=== PATIENT | female | born 1965 | race Caucasian/White ===

== ENCOUNTER → 2020-10-27 16:19 | Outpatient (CLI) | payer OTHER, SELFPAY ==
[2020-10-27 15:37] VITALS: BMI 27.3
[2020-11-02 09:55] LABS: HPV APTIMA, High Risk Negative (Negative)
== END ==
PROVIDERS: PCP Family Medicine; Referring Provider Nurse Practitioner Women's Health; Visit Provider Nurse Practitioner Women's Health
DX: Z12.4 Encounter for screening for malignant neoplasm of cervix (principal)
CPT/HCPCS: 87624; 88175; G0145

== ENCOUNTER → 2020-11-10 07:03 | Outpatient (CLI) | payer OTHER, SELFPAY ==
[2020-10-27 15:37] VITALS: BMI 27.3
--- NOTE | 2020-11-10 07:05 | BI_ITS ---
MAMMOGRAPHY - BILATERAL SCREENING REASON FOR EXAM: Female, 55 years old. Routine annual screening examination. PERTINENT HISTORY: Non-contributory. TECHNIQUE: Digital bilateral breast racheal (3D mammographic acquisition) in the CC and MLO projections. 2-D mediolateral oblique (MLO) and craniocaudad (CC) views of both breasts were obtained. CAD: Full Field Digital Mammography with Computer Added Detection was performed. COMPARISON: Comparison is made with prior outside examination dated 10/08/2014. FINDINGS: Breast Composition: The breasts are heterogeneously dense, which may obscure small masses. There are no dominant masses or suspicious calcifications. No other significant abnormalities are identified. There has been no significant change since the prior study. BI/SCRN MAMM (CAD)W/RACHEAL BILAT IMPRESSION: Stable bilateral screening mammogram. Yearly follow-up mammogram recommended. (A) ASSESSMENT CATEGORY: BIRADS Category 1: Negative. A letter regarding these results will be sent to the patient by the facility within 30 days. Approximately 10% of breast cancers are not detected by mammography. A normal mammogram should not delay biopsy of a clinically suspicious abnormality. [id number] Electronically Signed: Sunny Hood MD at 8:16 EDT , Service support ,
[2020-11-10 08:43] LABS: Cholesterol 202 mg/dL (200); Glucose 88 mg/dL (74-106); High Density Lipoprotein 74 mg/dL; Thyroid Stim Hormone (TSH) 4.19 uIU/mL (0.358-3.74); Triglycerides 54 mg/dL; Very Low Density Lipoprotein 11 mg/dL (5-40)
[2020-11-10 09:00] LABS: Vitamin D,25 Hydroxy 35.1 ng/mL
== END ==
PROVIDERS: PCP Family Medicine; Referring Provider Nurse Practitioner Women's Health; Visit Provider Nurse Practitioner Women's Health
DX: Z12.31 Encounter for screening mammogram for malignant neoplasm of breast (principal); Z13.1 Encounter for screening for diabetes mellitus; Z13.220 Encounter for screening for lipoid disorders; Z13.21 Encounter for screening for nutritional disorder
CPT/HCPCS: 36415; 77063; 77067; 80061; 82306; 82947; 84443

== ENCOUNTER → 2021-03-02 10:27 | Outpatient (CLI) | payer OTHER, SELFPAY ==
[2021-03-02 12:55] LABS: Free T3 2.4 pg/mL (2.18-3.98); T4 Total, Thyroxin 9.8 ug/dL (4.8-13.9)
== END ==
PROVIDERS: PCP Family Medicine; Referring Provider Family Medicine; Visit Provider Nurse Practitioner Family
DX: E03.9 Hypothyroidism, unspecified (principal)
CPT/HCPCS: 36415; 84436; 84481

== ENCOUNTER 2021-04-20 13:46 | Outpatient (CLI) | payer OTHER, SELFPAY ==
[2021-04-21 09:13] LABS: Thyroid Stim Hormone (TSH) 2.85 uIU/mL (0.358-3.74)
== END 2021-04-20 23:59 | disposition short-term general hospital (02) ==
PROVIDERS: PCP Family Medicine; Referring Provider Family Medicine; Visit Provider Nurse Practitioner Family
DX: E03.9 Hypothyroidism, unspecified (principal)
CPT/HCPCS: 36415; 84443

== ENCOUNTER → 2021-10-14 | Outpatient (CLI) | payer OTHER, SELFPAY ==
[2021-10-14 18:13] LABS: Anion Gap 6 (5-15); BUN 16 mg/dL (7-18); BUN/Creat Ratio 25.9 RATIO (10-20); Calcium,Total 9.3 mg/dL (8.5-10.1); Chloride 102 mmol/L (98-107); Creatinine, Serum 0.62 mg/dL (0.55-1.02); EST Glomerular Filtration Rate 107 mL/min (>60); Est Glom Filt Rate - Afr Amer 130 mL/min (>60); Glucose 99 mg/dL (74-106); Potassium 3.8 mmol/L (3.5-5.1); Sodium Level 138 mmol/L (136-145); Thyroid Stim Hormone (TSH) 2.92 uIU/mL (0.358-3.74)
== END | disposition home or self-care (01) ==
LOC: MFPLAB 14:36
PROVIDERS: Nurse Practitioner Family; PCP Family Medicine; Referring Provider Family Medicine; Visit Provider Family Medicine
DX: E03.9 Hypothyroidism, unspecified (principal)
CPT/HCPCS: 36415; 80048; 84443

== ENCOUNTER → 2021-12-30 | Outpatient (CLI) | payer OTHER, SELFPAY ==
[2021-12-30 18:33] LABS: T4 Free Direct 0.99 ng/dL (0.76-1.46); Thyroid Stim Hormone (TSH) 2.38 uIU/mL (0.358-3.74)
== END | disposition home or self-care (01) ==
LOC: MFPLAB 14:38
PROVIDERS: PCP Family Medicine; Referring Provider Family Medicine; Visit Provider Nurse Practitioner Family
DX: E03.9 Hypothyroidism, unspecified (principal)
CPT/HCPCS: 36415; 84439; 84443

== ENCOUNTER → 2022-04-05 | Outpatient (CLI) | payer OTHER, SELFPAY ==
[2022-04-05 11:16] LABS: Free T3 2.3 pg/mL (2.18-3.98); T4 Free Direct 0.97 ng/dL (0.76-1.46); Thyroid Stim Hormone (TSH) 2.66 uIU/mL (0.358-3.74)
== END | disposition home or self-care (01) ==
LOC: MFPLAB 08:09
PROVIDERS: PCP Family Medicine; Visit Provider Family Medicine
DX: E03.9 Hypothyroidism, unspecified (principal)
CPT/HCPCS: 36415; 84439; 84443; 84481

== ENCOUNTER → 2022-05-26 | Outpatient (CLI) | payer OTHER, SELFPAY ==
[2022-05-26 10:54] LABS: PTHIN 57.7 pg/mL (18.4-80.1)
[2022-05-26 11:13] LABS: ALB/GLOB Ratio 1.1 RATIO (0.9-2.4); AST(SGOT) 20 U/L (15-37); Alanine Aminotransfer ALT/SGPT 24 U/L (13-56); Albumin, Serum 3.9 g/dL (3.2-5.0); Alkaline Phosphatase 93 U/L (45-117); Anion Gap 10 (5-15); BUN 11 mg/dL (7-18); BUN/Creat Ratio 17.5 RATIO (10-20); Calcium,Total 9.1 mg/dL (8.5-10.1); Chloride 100 mmol/L (98-107); Creatinine, Serum 0.63 mg/dL (0.55-1.02); EST Glomerular Filtration Rate 104 mL/min (>60); Est Glom Filt Rate - Afr Amer 126 mL/min (>60); Free T3 2.9 pg/mL (2.18-3.98); Globulin 3.6 g/dL (2.2-4.2); Glucose 91 mg/dL (74-106); Potassium 3.8 mmol/L (3.5-5.1); Protein, Total 7.5 g/dL (6.4-8.2); Sodium Level 138 mmol/L (136-145); T4 Free Direct 1.33 ng/dL (0.76-1.46); Thyroid Stim Hormone (TSH) 0.56 uIU/mL (0.358-3.74)
[2022-05-29 12:08] LABS: Vitamin D 1,25-Dihydroxy 38.2 pg/mL (24.8-81.5)
[2022-05-29 18:50] LABS: ANTINUCLEAR ANTIBODIES DIRECT Negative (Negative)
== END | disposition home or self-care (01) ==
LOC: MFPLAB 09:04
PROVIDERS: PCP Family Medicine; Visit Provider Family Medicine
DX: M25.50 Pain in unspecified joint (principal)
CPT/HCPCS: 36415; 80053; 82652; 83970; 84439; 84443; 84481; 86038

== ENCOUNTER → 2022-11-24 | Outpatient (CLI) | payer OTHER, SELFPAY ==
[2022-11-24 15:23] LABS: T4 Free Direct 1.08 ng/dL (0.76-1.46)
== END | disposition home or self-care (01) ==
LOC: MTLAB 11:58
PROVIDERS: PCP Family Medicine; Referring Provider Nurse Practitioner Family; Visit Provider Nurse Practitioner Family
DX: E03.9 Hypothyroidism, unspecified (principal)
CPT/HCPCS: 36415; 84439

== ENCOUNTER → 2022-12-01 | Outpatient (CLI) | payer OTHER, SELFPAY ==
[2022-12-01 12:54] LABS: Alanine Aminotransfer ALT/SGPT 20 U/L (13-56); Cholesterol 220 mg/dL (200); Creatinine, Serum 0.62 mg/dL (0.55-1.02); EST Glomerular Filtration Rate 105 mL/min (>60); Est Glom Filt Rate - Afr Amer 128 mL/min (>60); High Density Lipoprotein 86 mg/dL; Thyroid Stim Hormone (TSH) 2.03 uIU/mL (0.358-3.74); Triglycerides 63 mg/dL; Very Low Density Lipoprotein 13 mg/dL (5-40)
== END | disposition home or self-care (01) ==
LOC: MFPLAB 09:42
PROVIDERS: PCP Family Medicine; Visit Provider Family Medicine
DX: E03.9 Hypothyroidism, unspecified (principal); Z13.220 Encounter for screening for lipoid disorders
CPT/HCPCS: 36415; 80061; 82565; 84443; 84460

== ENCOUNTER → 2023-06-26 | Outpatient (CLI) | payer OTHER, SELFPAY ==
--- NOTE | 2023-06-26 07:18 | BI_ITS ---
MAMMOGRAPHY - BILATERAL SCREENING REASON FOR EXAM: Female, 58 years old. Routine annual screening examination. PERTINENT HISTORY: Non-contributory. TECHNIQUE: Digital bilateral breast racheal (3D mammographic acquisition) in the CC and MLO projections. 2-D mediolateral oblique (MLO) and craniocaudad (CC) views of both breasts were obtained. CAD: Full Field Digital Mammography with Computer Added Detection was performed. COMPARISON: Comparison is made with prior study November 10, 2020. FINDINGS: Breast Composition: The breasts are heterogeneously dense, which may obscure small masses. There are no dominant masses or suspicious calcifications. No other significant abnormalities are identified. There has been no significant change since the prior study. BI/SCRN MAMM (CAD)W/RACHEAL BILAT IMPRESSION: Stable bilateral screening mammogram. Yearly follow-up mammogram recommended. (A) ASSESSMENT CATEGORY: BIRADS Category 1: Negative. A letter regarding these results will be sent to the patient by the facility within 30 days. Approximately 10% of breast cancers are not detected by mammography. A normal mammogram should not delay biopsy of a clinically suspicious abnormality. [id number] Electronically Signed: Sunny Hood MD at 9:58 EDT ,
== END | disposition home or self-care (01) ==
LOC: OPBI 07:18
PROVIDERS: PCP Family Medicine; Referring Provider Family Medicine; Visit Provider Family Medicine
DX: Z12.31 Encounter for screening mammogram for malignant neoplasm of breast (principal)
CPT/HCPCS: 77063; 77067

== ENCOUNTER → 2023-12-05 | Outpatient (CLI) | payer OTHER, SELFPAY ==
[2023-12-05 10:07] LABS: Absolute Lymphocyte Count 2.37 X10^3/uL (0.83-4.51); Absolute Neutrophil Count 2.6 X10^3/uL (2.0-7.7); Basophil# 0.07 X10^3/uL; Basophil% 1.2 % (0-1); Eosinophil# 0.34 X10^3/uL; Eosinophils% 5.8 % (0-5); Hematocrit 44.4 % (37-47); Hemoglobin 14.7 g/dL (12.0-15.0); Lymphocyte # 2.37 X10^3/ul (0.83-4.51); Lymphocyte % 40.2 % (19-41); Mean Corp Hgb Conc 33.1 g/dL (32-36); Mean Corpuscular Hgb 31.5 pg (27.0-32.0); Mean Corpuscular Volume 95.3 fL (81-99); Mean Platelet Vol. 9.8 fl (6.2-12.0); Monocyte# 0.55 X10^3/uL; Monocyte% 9.3 % (0-10); NRBC Flagged by Analyzer 0 % (0-5); Neutrophil # 2.55 X10^3/uL (2.7-7.7); Neutrophil % 43.2 % (47-70); Platelet Count 313 K/mm3 (150-450); RBC Distribution Width CV 12.4 % (11.6-14.6); RBC Distribution Width SD 43.9 fl (35.1-43.9); Red Blood Count 4.66 M/mm3 (4.2-5.4); White Blood Count 5.9 K/mm3 (4.4-11.0)
[2023-12-05 10:40] LABS: Vitamin D,25 Hydroxy 29.3 ng/mL
[2023-12-05 10:58] LABS: AST(SGOT) 14 U/L (15-37); Alanine Aminotransfer ALT/SGPT 20 U/L (13-56); Albumin, Serum 3.8 g/dL (3.2-5.0); Alkaline Phosphatase 87 U/L (45-117); Anion Gap 4 (5-15); BUN 18 mg/dL (7-18); BUN/Creat Ratio 23.8 RATIO (10-20); Calcium,Total 9.3 mg/dL (8.5-10.1); Chloride 104 mmol/L (98-107); Cholesterol 234 mg/dL (200); Creatinine, Serum 0.76 mg/dL (0.55-1.02); EST Glomerular Filtration Rate 84 mL/min (>60); Est Glom Filt Rate - Afr Amer 102 mL/min (>60); Globulin 3.7 g/dL (2.2-4.2); Glucose 89 mg/dL (74-106); High Density Lipoprotein 106 mg/dL; Potassium 3.9 mmol/L (3.5-5.1); Protein, Total 7.5 g/dL (6.4-8.2); Sodium Level 137 mmol/L (136-145); Triglycerides 68 mg/dL; Very Low Density Lipoprotein 14 mg/dL (5-40)
== END | disposition home or self-care (01) ==
LOC: MTLAB 07:39
PROVIDERS: PCP Family Medicine; Referring Provider Family Medicine; Visit Provider Family Medicine
DX: Z00.00 Encounter for general adult medical examination without abnormal findings (principal); J45.909 Unspecified asthma, uncomplicated; E03.9 Hypothyroidism, unspecified; Z13.220 Encounter for screening for lipoid disorders
CPT/HCPCS: 36415; 80053; 80061; 82306; 84443; 85025

== ENCOUNTER 2024-11-01 10:06 | Emergency (ER) | payer OTHER, SELFPAY ==
[2024-11-01 10:08] VITALS: BP 195/101; PULSE 89; RESP 16; TEMP 36.7; O2SAT 100
[2024-11-01 10:10] VITALS: BMI 28.4
--- NOTE | 2024-11-01 10:25 | CT_ITS ---
PROCEDURE: ABDOMEN/PELVIS W IV CONT ONLY 11/01/2024 REASON FOR EXAM: RLQ PAIN TECHNIQUE: ABDOMEN/PELVIS W IV CONT ONLY Coronal and Sagittal reconstruction series were provided. CONTRAST: Isovue 370 VOLUME: 100 mL One or more dose reduction techniques were used (e.g., Automated exposure control, adjustment of the mA and/or kV according to patient size, use of iterative reconstruction technique. RADIATION DOSE SUMMARY: CTDlvol: 15.65 mGy DLP: 731.16 mGycm COMPARISON: Unremarkable. FINDINGS: Lung bases: Clear. Liver: Unremarkable. Gallbladder: Unremarkable. No biliary dilation. Spleen: Unremarkable. Pancreas: Unremarkable. Adrenals: Bilateral adrenal nodules measuring 7 mm on the left and 17 mm on the right. Kidneys: No hydronephrosis or nephrolithiasis. Bladder: Distended and unremarkable. Reproductive Organs: Prominence of the left pelvic vasculature may be seen with pelvic congestion syndrome. Status post tubal ligation. Bowel: No bowel wall thickening. No bowel obstruction. Appendix: No evidence of acute appendicitis. Lymph nodes: No lymphadenopathy. Vasculature: No aneurysm. No dissection. Peritoneum / Retroperitoneum: No free air or free fluid. Bones: No acute bony abnormalities. CT/Abdomen/Pelvis W IV Cont ONLY IMPRESSION: Prominence of the left pelvic vasculature which may be seen with pelvic congest ion syndrome. Status post tubal ligation. Otherwise, no acute abdominopelvic findings. Bilateral adrenal nodules measuring 7 mm on the left and 17 mm on the right. C T scan with adrenal protocol may be performed for further evaluation. Reading Location: [id number]
--- NOTE | 2024-11-01 10:41 | EX.ED.DYSGE1 ---
HPI History of Present Illness Chief Complaint: Lower Extremity Injury Narrative Narrative: Patient is a 59-year-old female presenting to the emergency department for right groin pain. Patient has no significant past medical history. She states that 3 weeks ago she started to have aching pain in her right groin. She states that she has a prickling sensation down the right lateral thigh that stops at the knee. She denies any trauma. Denies any IV drug use, saddle anesthesia, bowel or bladder incontinence or retention. Denies any back pain. She reports she has been trying multiple medications at home including Tylenol, Motrin, Voltaren gel, gabapentin and a short course of prednisone but nothing has helped her pain. States that she went to work last night and thinks she further worsened her injury. Today she went to have an MRI done and could not tolerate the pain so she came here afterwards. Denies fever, chills, chest pain, SOB, nausea, vomiting, diarrhea, dysuria, hematuria, pelvic pain. Denies numbness or weakness in her leg. [facility] Medical History Hot flash not due to menopause Asthma Home Medications ?Medication ?Instructions ?Recorded ?Last Taken ?Type active liver PO 10/27/20 Unknown History albuterol 90 mcg/actuation aerosol mcg inhalation 10/27/20 Unknown History inhaler loratadine-pseudoephedrine ER 10 1 tab PO DAILY 10/27/20 Unknown History mg-240 mg tablet,extended [id number] (Claritin-D 24 Hour) levothyroxine 75 mcg capsule 75 mcg PO DAILY 06/27/23 Unknown History cyclobenzaprine 10 mg tablet 10 mg PO TID PRN Muscle Spasm #20 11/01/24 Unknown Rx TABLETS oxycodone-acetaminophen 5 mg-325 1 tab PO Q8H PRN pain 3 days #12 11/01/24 Unknown Rx mg tablet (Percocet) tabs Allergy/AdvReac Type Severity Reaction Status Date / Time Penicillins Allergy Intermediate Anaphylaxis Verified 11/01/24 10:10 Family History Grandfather Heart disease Cancer Father Heart disease Mother Hypertension Thyroid disorder Surgical History History of tubal ligation History of tonsillectomy and adenoidectomy Social History household members: spouse number of children: 2 current occupational status: employed current occupation: [employer] history of recent travel: No sexually active: Yes Smoking Status: Never smoker alcohol intake: current alcohol intake frequency: a few times a month substance use type: does not use what type of physical activity do you participate in: walking, bicycling and yoga frequency: 3-4 times per week seatbelt use: always do you feel safe at home: Yes additional social history: - [place] ROS ED ROS Narrative see HPI EXAM Physical Exam Narrative Exam Narrative: Vital signs: Reviewed General: Alert and oriented. No acute distress HEENT: Head is normocephalic and atraumatic, sinuses nontender, pupils equal round and reactive. Nares are patent. Oropharynx and throat exams normal. Neck: Supple without lymphadenopathy nontender Cardiovascular: Regular rate and rhythm, no murmurs. No rubs or gallops. Normal S1 and S2 Respiratory: Clear to auscultation bilaterally. No wheezes, rales, rhonchi Abdominal: Soft and tender to palpation in the right lower quadrant. No RUQ, epigastric, left sided or suprapubic abdominal pain. Normal bowel sounds. No guarding or rebound. Nonsurgical abdomen Extremities: No tenderness. No bruising. Normal range of motion. 5/5 strength with flexion and extension at hip and knee. Normal sensation. No swelling of leg or calf. No tenderness palpation of the posterior calf. DP and PT pulses intact bilaterally. No midline cervical, thoracic or lumbar spinal tenderness to palpation. No step-offs or deformities. No paraspinal tenderness to palpation. Skin: No rash or redness. Neurological: Cranial nerves II through XII are grossly intact. Normal strength and sensation. Normal cerebellar function The rest of the physical exam is unremarkable Const Vital Signs: 11/01/24 10:08 11/01/24 12:07 11/01/24 14:00 Temperature 98.1 F Temperature Source Oral Pulse Rate 89 91 76 Respiratory Rate 16 18 18 Blood Pressure 195/101 H 165/99 H 168/89 H Blood Pressure Mean 132 121 115 Pulse Ox 100 99 99 Oxygen Delivery Method Room Air 11/01/24 14:41 Temperature 98.1 F Temperature Source Pulse Rate 76 Respiratory Rate 18 Blood Pressure 168/89 H Blood Pressure Mean 115 Pulse Ox 99 Oxygen Delivery Method MDM MDM MDM Narrative Medical decision making narrative: Patient is a 59-year-old female presenting emergency department for right groin pain. Patient was seen and examined. Vitals are stable. Patient resting in bed comfortably in no acute distress. Patient given Toradol for pain control. Patient had a MRI of her lumbar spine done this morning. This is pending at this time. Patient given Toradol for pain control. I suspect this is likely MSK however she did have right lower quadrant pain to palpation, CT of the abdomen pelvis was ordered. She has no swelling or tenderness to palpation of the calf, I do not suspect DVT. No urinary symptoms to suspect UTI. CBC with a leukocytosis of 11.2 and hemoglobin of 15.3. Urinalysis with no evidence of UTI. BMP with no significant abnormalities. CT shows prominence of the left pelvic vasculature which may be seen with pelvic congestion syndrome. Status post tubal ligation. Otherwise, no acute abdominopelvic findings. Bilateral adrenal nodules measuring 7 mm on the left and 17 mm on the right. CT scan with adrenal protocol may be performed for further evaluation. MRI was reviewed from outpatient. There are no acute findings. Patient updated on the findings. She still endorsing pain, morphine was given. Has been will be coming to [employer]. Given negative workup, this is likely MSK in nature. It does worsen with movement and ambulation. Patient was prescribed Flexeril and Percocet for home given she has tried multi little pain control at home with no improvement in pain. She was encouraged to follow-up with orthopedics soon as possible and return to the ED with any worsening symptoms. Patient discharged from the Emergency Department. I do not feel that the patient's evaluation reveals any acute reason for admission at this time. I instructed them to either follow-up with their primary care physician or promptly return to the Emergency Department for reevaluation should symptoms worsen or new symptoms develop. I explained what symptoms would indicate the need to return to the emergency department. Shared decision making was used. The patient voiced understanding of the treatment plan and is agreeable with it. History & Record Review Discussion w/independent historian: Patient Lab Data Attestation: I reviewed the patient's lab results. Labs: Laboratory Results - last 24 hr 11/01/24 11/01/24 10:38 12:00 WBC 11.2 H RBC 4.66 Hgb 15.3 H Hct 44.3 MCV 95.1 MCH 32.8 H MCHC 34.5 RDW Std Deviation 44.0 H RDW Coeff of Justine 12.6 Plt Count 311 MPV 8.9 Immature Gran % (Auto) 0.500 Neut % (Auto) 71.3 H Lymph % (Auto) 17.1 L Carver % (Auto) 8.2 Eos % (Auto) 2.4 Baso % (Auto) 0.5 Absolute Neuts (auto) 8.0 H Absolute Lymphs (auto) 1.91 Nucleated RBC % 0 Sodium 137 Potassium 4.1 Chloride 99 Carbon Dioxide 27.7 Anion Gap 10 BUN 13 Creatinine 0.65 L Estim Creat Clear Calc 87.79 Est GFR (MDRD) Non-Af 103 BUN/Creatinine Ratio 20.0 Glucose 103 H Calcium 9.5 Total Bilirubin 0.33 AST 16 ALT 16 Alkaline Phosphatase 85 Total Protein 6.9 Albumin 4.2 Globulin 2.8 Albumin/Globulin Ratio 1.5 Urine Color Yellow Urine Clarity Clear Urine pH 8.0 Ur Specific [place] 1.010 Urine Protein Negative Urine Glucose (UA) Normal Urine Ketones Negative Urine Occult Blood Negative Urine Nitrite Negative Urine Bilirubin Negative Urine Urobilinogen Normal Ur Leukocyte Esterase Negative Urine RBC 0 SEEN Urine WBC 0-5 SEEN Ur Squamous Epith Cells 0 SEEN Urine Bacteria 0 SEEN Urine Mucus 0 SEEN Radiography Diagnostic Testing: Clinical Impression(s) from Imaging Studies Abdomen/Pelvis CT 11/01/24 10:25 IMPRESSION: Prominence of the left pelvic vasculature which may be seen with pelvic congestion syndrome. Status post tubal ligation. Otherwise, no acute abdominopelvic findings. Bilateral adrenal nodules measuring 7 mm on the left and 17 mm on the right. CT scan with adrenal protocol may be performed for further evaluation. Reading Location: [facility] Discharge Plan Triage Chief Complaint: Lower Extremity Injury ED Provider: Carrol Jarvis Dx/Rx/DC Orders Instructions: ED Hip Strain Prescriptions: New oxycodone-acetaminophen [Percocet] 5-325 mg tablet 1 tab PO Q8H PRN (Reason: pain) 3 Days Qty: 12 0RF cyclobenzaprine 10 mg tablet 10 mg PO TID PRN (Reason: Muscle Spasm) Qty: 20 0RF No Action loratadine-pseudoephedrine [Claritin-D 24 Hour] 10-240 mg tablet extended release 24 hr 1 tab PO DAILY active liver PO albuterol 90 mcg/actuation aerosol inhalation levothyroxine 75 mcg capsule 75 mcg PO DAILY Primary Care Provider: Judy Santana Referrals: Judy Santana MD [Primary Care Provider] - 2 Days Activity Restrictions/Additional Instructions: Your evaluation in the Emergency Department did not reveal any acute reason for admission. However, I want to emphasize that you may be early in the course of a disease process or illness even if it is not present. For this reason you should follow-up within 24 hours for reevaluation with either your primary care physician or if necessary back here in the Emergency Department. You should return to the Emergency Department immediately if your symptoms worsen or new symptoms develop. You can take the Percocet 1 tablet every 8 hours for pain control. Tried to take Motrin first. You can take the Flexeril for muscle spasms. Taking this in the Percocet may cause lightheadedness, nausea, vomiting. Do not take this while driving or operating heavy machinery. Return to the ED with any new or worsening symptoms. Follow-up with your primary care doctor soon as possible. Print Language: Greenlandic Disposition Disposition: Home, Self Care Discharge Date/Time: 11/01/24 14:47
[2024-11-01 10:47] LABS: Hematocrit 44.3 % (37-47); Hemoglobin 15.3 g/dL (12.0-15.0); Immature Granulocytes Count 0.060 X10^3/uL (0.0-0.0); Mean Corp Hgb Conc 34.5 g/dL (32-36); Mean Corpuscular Volume 95.1 fL (81-99); Mean Platelet Vol. 8.9 fl (6.2-12.0); NRBC Flagged by Analyzer 0 % (0-5); Platelet Count 311 K/mm3 (150-450); RBC Distribution Width CV 12.6 % (11.6-14.6); RBC Distribution Width SD 44.0 fl (35.1-43.9); Red Blood Count 4.66 M/mm3 (4.2-5.4); White Blood Count 11.2 K/mm3 (4.4-11.0)
--- OUTSIDE RECORDS SUMMARY | 2024-11-01 10:49 | XMS RPT_ITS | CCD ---
Author Organization [facility] Care Team Providers Care Director Of Event Management Name Role Phone Dr. Khurram Parish Primary Care Provider [phone] Dr. Khurram Parish Referring Provider [phone] NIRAV Cardona Attending Provider Unallocated MD, Noms Provider Primary Care Provi margaux Unallocated , Noms Provider Primary Care Provi margaux CARA WELLINGTON Attending Unavailable CARA WELLINGTON Attending Unavailable Judy Santana Primary Care Unavailable Judy Santana Attending Unavailable Judy Santana Referring Unavailable McMorrow MAINTENANCE AND UTILITIES SUPERVISOR, Wai Attending Unavailable McMorrow MAINTENANCE AND UTILITIES SUPERVISOR, Wai Referring Unavailable Judy Santana Primary Care Unavailable Allergies Allergy Classification Reported Allergen(s) Allergy Type Date of Onset Reaction(s) Facility (9 sources) Penicillins; Translations: [Penicillins] Allergy to substance 1965 Anaphylaxis [facility] Medications Current Medications Medication Drug Class(es) [...] every week ergocalciferol (Vitamin D2) 1.25 MG (48126 UT) capsule Take 1 capsule by mouth [...] Absolute Lymph 2.37 X10 3/uL Normal 0.83-4.51 [facility] Comment on above: Performed By: #### L 500.4100, L500.4050, L100.0100, L501.9520, L506.1000 #### [facility] [address] [place], [address] Absolute Neut 2.6 X10 3/uL Normal 2.0-7.7 [facility] Comment on above: Performed By: #### L 500.4100, L500.4050, L100.0100, L501.9520, L506.1000 #### [facility] [address] [place], [address] Basophils/100 WBC (Bld) 1.2 % High 0-1 [facility] Comment on above: Performed By: #### L 500.4100, L500.4050, L100.0100, L501.9520, L506.1000 #### [facility] [address] [place], [address] Eosinophils/100 WBC (Bld) 5.8 % High 0-5 [facility] Comment on above: Performed By: #### L 500.4100, L500.4050, L100.0100, L501.9520, L506.1000 #### [facility] [address] [place], [address] Erythrocyte distribution width (RBC) [Ratio] 12.4 % Normal 11.6-14.6 [facility] Comment on above: Performed By: #### L 500.4100, L500.4050, L100.0100, L501.9520, L506.1000 #### [facility] [address] [place], [address] Hematocrit (Bld) [Volume fraction] 44.4 % Normal 37-47 [facility] Comment on above: Performed By: #### L 500.4100, L500.4050, L100.0100, L501.9520, L506.1000 #### [facility] [address] [place], [address] Hemoglobin (Bld) [Mass/Vol] 14.7 g/dL Normal 12.0-15.0 [facility] Comment on above: Performed By: #### L 500.4100, L500.4050, L100.0100, L501.9520, L506.1000 #### [facility] [address] [place], [address] IG% 0.300 Normal 0.0-0.9 [facility] Comment on above: Result Comment: IG% - Immature Granulocytes (promyelocytes, myelocytes and metamyelocytes) > 1% indicates that a LEFT SHIFT is Present. Performed By: #### L 500.4100, L500.4050, L100.0100, L501.9520, L506.1000 #### [facility] [address] [place], [address] Lymphocytes/100 WBC (Bld) 40.2 % Normal 19-41 [facility] Comment on above: Performed By: #### L 500.4100, L500.4050, L100.0100, L501.9520, L506.1000 #### [facility] [address] [place], [address] MCH (RBC) [Entitic mass] 31.5 pg Normal 27.0-32.0 [facility] Comment on above: Performed By: #### L 500.4100, L500.4050, L100.0100, L501.9520, L506.1000 #### [facility] [address] [place], [address] MCHC (RBC) [Mass/Vol] 33.1 g/dL Normal 32-36 [facility] Comment on above: Performed By: #### L 500.4100, L500.4050, L100.0100, L501.9520, L506.1000 #### [facility] [address] [place], [address] MCV (RBC) [Entitic vol] 95.3 fL Normal 81-99 [facility] Comment on above: Performed By: #### L 500.4100, L500.4050, L100.0100, L501.9520, L506.1000 #### [facility] [address] [place], [address] Monocytes/100 WBC (Bld) 9.3 % Normal 0-10 [facility] Comment on above: Performed By: #### L 500.4100, L500.4050, L100.0100, L501.9520, L506.1000 #### [facility] [address] [place], [address] Neutrophils/100 WBC (Bld) 43.2 % Low 47-70 [facility] Comment on above: Performed By: #### L 500.4100, L500.4050, L100.0100, L501.9520, L506.1000 #### [facility] [address] [place], [address] Nucleated RBC (Bld) [#/Vol] 0 10*3/uL Normal 0-5 [facility] Comment on above: Performed By: #### L 500.4100, L500.4050, L100.0100, L501.9520, L506.1000 #### [facility] [address] [place], [address] Platelet mean volume (Bld) [Entitic vol] 9.8 fL Normal 6.2-12.0 [facility] Comment on above: Performed By: #### L 500.4100, L500.4050, L100.0100, L501.9520, L506.1000 #### [facility] [address] [place], [address] Platelets (Bld) [#/Vol] 313 10*3/uL Normal 150-450 [facility] Comment on above: Performed By: #### L 500.4100, L500.4050, L100.0100, L501.9520, L506.1000 #### [facility] [address] [place], [address] RBC (Bld) [#/Vol] 4.66 10*6/uL Normal 4.2-5.4 [facility] Comment on above: Performed By: #### L 500.4100, L500.4050, L100.0100, L501.9520, L506.1000 #### [facility] [address] [place], [address] RDW SD 43.9 fl Normal 35.1-43.9 [facility] Comment on above: Performed By: #### L 500.4100, L500.4050, L100.0100, L501.9520, L506.1000 #### [facility] [address] [place], [address] WBC (Bld) [#/Vol] 5.9 10*3/uL Normal 4.4-11.0 [facility] Comment on above: Performed By: #### L 500.4100, L500.4050, L100.0100, L501.9520, L506.1000 #### [facility] [address] [place], [address] [facility] 12-05-2023 Albumin [Mass/Vol] 3.8 g/dL Normal 3.2-5.0 [facility] Comment on above: Performed By: #### L 500.4100, L500.4050, L100.0100, L501.9520, L506.1000 #### [facility] [address] [place], [address] Albumin/Globulin [Mass ratio] 1.0 {ratio} Normal 0.9-2.4 [facility] Comment on above: Performed By: #### L 500.4100, L500.4050, L100.0100, L501.9520, L506.1000 #### [facility] [address] [place], [address] ALK P 87 U/L Normal 45-117 [facility] Comment on above: Performed By: #### L 500.4100, L500.4050, L100.0100, L501.9520, L506.1000 #### [facility] [address] [place], [address] ALT [Catalytic activity/Vol] 20 U/L Normal 13-56 [facility] Comment on above: Performed By: #### L 500.4100, L500.4050, L100.0100, L501.9520, L506.1000 #### [facility] [address] [place], [address] AST [Catalytic activity/Vol] 14 U/L Low 15-37 [facility] Comment on above: Performed By: #### L 500.4100, L500.4050, L100.0100, L501.9520, L506.1000 #### [facility] [address] [place], [address] Bilirubin [Mass/Vol] 0.50 mg/dL Normal 0.20-1.00 [facility] Comment on above: Result Comment: For patients on eltrombopag therapy, use of Dimension [place] TBIL is not recommended. Performed By: #### L 500.4100, L500.4050, L100.0100, L501.9520, L506.1000 #### [facility] [address] [place], [address] BUN/CRE 23.8 RATIO High 10-20 [facility] Comment on above: Performed By: #### L 500.4100, L500.4050, L100.0100, L501.9520, L506.1000 #### [facility] [address] [place], [address] CA,Total 9.3 mg/dL Normal 8.5-10.1 [facility] Comment on above: Performed By: #### L 500.4100, L500.4050, L100.0100, L501.9520, L506.1000 #### [facility] [address] [place], [address] Chloride [Moles/Vol] 104 mmol/L Normal 98-107 [facility] Comment on above: Performed By: #### L 500.4100, L500.4050, L100.0100, L501.9520, L506.1000 #### [facility] [address] [place], [address] CO2 [Moles/Vol] 29.0 mmol/L Normal 21.0-32.0 [facility] Comment on above: Performed By: #### L 500.4100, L500.4050, L100.0100, L501.9520, L506.1000 #### [facility] [address] [place], [address] Creatinine [Mass/Vol] 0.76 mg/dL Normal 0.55-1.02 [facility] Comment on above: Result Comment: The validity of the calculated GFR GFRAA in patients over 70 years has not been determined. Clinical correlation is essential. Performed By: #### L 500.4100, L500.4050, L100.0100, L501.9520, L506.1000 #### [facility] [address] [place], [address] EST GFR - AA 102 mL/min Normal >60 [facility] Comment on above: Result Comment: Afri can [place] GFR Calc Performed By: #### L 500.4100, L500.4050, L100.0100, L501.9520, L506.1000 #### [facility] [address] [place], [address] GAP 4 Low 5-15 [facility] Comment on above: Performed By: #### L 500.4100, L500.4050, L100.0100, L501.9520, L506.1000 #### [facility] [address] [place], [address] GFR/1.73 sq M.predicted among non-blacks MDRD (S/P/Bld) [Vol rate/Area] 84 mL/min/{1.73_m2} Normal >60 [facility] Comment on above: Result Comment: Non- GFR Calc Performed By: #### L 500.4100, L500.4050, L100.0100, L501.9520, L506.1000 #### [facility] [address] [place], [address] Globulin (S) [Mass/Vol] 3.7 g/dL Normal 2.2-4.2 [facility] Comment on above: Performed By: #### L 500.4100, L500.4050, L100.0100, L501.9520, L506.1000 #### [facility] [address] [place], [address] Glucose [Mass/Vol] 89 mg/dL Normal 74-106 [facility] Comment on above: Performed By: #### L 500.4100, L500.4050, L100.0100, L501.9520, L506.1000 #### [facility] [address] [place], [address] Potassium [Moles/Vol] 3.9 mmol/L Normal 3.5-5.1 [facility] Comment on above: Performed By: #### L 500.4100, L500.4050, L100.0100, L501.9520, L506.1000 #### [facility] [address] [place], [address] Sodium [Moles/Vol] 137 mmol/L Normal 136-145 [facility] Comment on above: Performed By: #### L 500.4100, L500.4050, L100.0100, L501.9520, L506.1000 #### [facility] [address] [place], [address] T PROT 7.5 g/dL Normal 6.4-8.2 [facility] Comment on above: Performed By: #### L 500.4100, L500.4050, L100.0100, L501.9520, L506.1000 #### [facility] [address] [place], [address] Urea nitrogen [Mass/Vol] 18 mg/dL Normal 7-18 [facility] Comment on above: Performed By: #### L 500.4100, L500.4050, L100.0100, L501.9520, L506.1000 #### [facility] [address] [place], [address] Lipid Profileon 12-05-2023 Cholesterol [Mass/Vol] 234 mg/dL High 200 [facility] Comment on above: Result Comment: <200 mg/dL Desirable 200-240 mg/dL Borderline >240 mg/dL High Risk Performed By: #### L 500.4100, L500.4050, L100.0100, L501.9520, L506.1000 #### [facility] [address] [place], [address] Cholesterol in HDL [Mass/Vol] 106 mg/dL Normal [facility] Comment on above: Result Comment: The drugs N-Acetylcysteine and Metamizole may falsely depress this assay. Reference Range HDL <40 mg/dL Low HDL Cholesterol HDL >or= 60 mg/dL High HDL Cholesterol Performed By: #### L 500.4100, L500.4050, L100.0100, L501.9520, L506.1000 #### [facility] [address] [place], [address] Cholesterol in LDL [Mass/Vol] 114 mg/dL Normal 0-130 [facility] Comment on above: Performed By: #### L 500.4100, L500.4050, L100.0100, L501.9520, L506.1000 #### [facility] [address] [place], [address] Cholesterol in VLDL [Mass/Vol] 14 mg/dL Normal 5-40 [facility] Comment on above: Performed By: #### L 500.4100, L500.4050, L100.0100, L501.9520, L506.1000 #### [facility] [address] [place], [address] Triglyceride [Mass/Vol] 68 mg/dL Normal [facility] Comment on above: Result Comment: The drugs N-Acetylcysteine and Metamizole may falsely depress this assay. Serum Triglycerides Reference Interval Normal <150 mg/dL Borderline high 150 - 199 mg/dL High 200 - 499 mg/dL Very High > or = 500 mg/dL Performed By: #### L 500.4100, L500.4050, L100.0100, L501.9520, L506.1000 #### [facility] [address] [place], [address] Thyroid Stim Hormone (TSH)on 12-05-2023 TSH 3.210 uIU/mL Normal 0.358-3.740 [facility] Comment on above: Performed By: #### L 500.4100, L500.4050, L100.0100, L501.9520, L506.1000 #### [facility] [address] [place], [address] Vitamin D,25 Hydroxyon 12-04 Vitamin D 25-OH 29.3 ng/mL Normal [facility] Comment on above: Result Comment: Lilliam min D 25(OH) Status Range Deficiency <20 ng/mL (50nmol/L) Insufficiency 20 - 30 ng/mL (50 - 75 nmol/L) Sufficiency 30 - 100 ng/mL (75 - 250 nmol/L) Toxicity >100 ng/mL (>250 nmol/L) Performed By: #### L 500.4100, L500.4050, L100.0100, L501.9520, L506.1000 #### [facility] [address] [place], [address] Basophil percentageOrdered B y: Khurram Parish on 12-01-2022 Cholesterol [Mass/Vol] 220 mg/dL <200 [facility] Comment on above: <200 mg/dL Desirable 200-240 mg/dL Borderline >240 mg/dL High Risk Triglyceride [Mass/Vol] 63 mg/dL <199 [facility] Comment on above: The drugs N-Acetylcy steine and Metamizole may falsely depress this assay.Serum Triglycerides Reference Interval Normal <150 mg/dL Borderline high 150 - 199 mg/dL High 200 - 499 mg/dL Very High > or = 500 mg/dL Laboratory - Chemistry and C hemistry - challengeOrdered By: Khurram Parish on 12-01-2022 ALT [Catalytic activity/Vol] 20 U/L 13-56 [facility] No Panel InformationOrdered By: Khurram Parish on 12-01-2022 Estimated GFR (MDRD) Amer 128 mL/min >60 [facility] Comment on above: GFR Calc Estimated GFR (MDRD) Non-Af Amer 105 mL/min >60 [facility] Comment on above: Non- GFR Calc Thyroid Stimulating Hormone (TSH) 2.03 uIU/mL 0.358-3.74 [facility] Serum or plasma cholesterol in HDL measurement (mass/volume)Ordered By: Khurram Parish on 12-01-2022 Cholesterol in HDL [Mass/Vol] 86 mg/dL >40 [facility] Comment on above: The drugs N-Acetylcy steine and Metamizole may falsely depress this assay. Reference Range HDL <40 mg/dL Low HDL Cholesterol HDL >or= 60 mg/dL High HDL Cholesterol Serum or plasma cholesterol in VLDL measurement (mass/volume)Ordered By: Khurram Parish on 12-01-2022 Cholesterol in VLDL [Mass/Vol] 13 mg/dL 5-40 [facility] Serum or plasma creatinine m easurement (mass/volume)Ordered By: Khurram Parish on 12-01-2022 Creatinine [Mass/Vol] 0.62 mg/dL 0.55-1.02 [facility] Comment on above: The validity of the calculated GFR & GFRAA in patients over 70 years has not been determined. Clinical correlation is essential. Serum or plasma low density lipoprotein (LDL) cholesterol measurement (mass/volume)Ordered By: Khurram Parish on 12-01-2022 Cholesterol in LDL [Mass/Vol] 121 mg/dL 0-130 [facility] - Chemistry and C hemistry - challengeOrdered By: Kiera Feldman on 11-24-2022 Free T4 [Mass/Vol] 1.08 ng/dL 0.76-1.46 [facility] Basophil percentageOrdered B y: Dr. Parish on 05-26-2022 Bilirubin [Mass/Vol] 0.50 mg/dL 0.20-1.00 [facility] Comment on above: For patients on eltr ombopag therapy, use of Dimension [place] TBIL is not recommended. Chloride [Moles/Vol] 100 mmol/L 98-107 [facility] Glucose [Mass/Vol] 91 mg/dL 74-106 [facility] Potassium [Moles/Vol] 3.8 mmol/L 3.5-5.1 [facility] Protein [Mass/Vol] 7.5 g/dL 6.4-8.2 [facility] Sodium [Moles/Vol] 138 mmol/L 136-145 [facility] Laboratory - Chemistry and C hemistry - challengeOrdered By: Dr. Parish on 05-26-2022 ALP [Catalytic activity/Vol] 93 U/L 45-117 [facility] ALT [Catalytic activity/Vol] 24 U/L 13-56 [facility] CO2 [Moles/Vol] 28.0 mmol/L 21.0-32.0 [facility] Free T4 [Mass/Vol] 1.33 ng/dL 0.76-1.46 [facility] Globulin (S) [Mass/Vol] 3.6 g/dL 2.2-4.2 [facility] Urea nitrogen/Creatinine [Mass ratio] 17.5 mg/mg 10-20 [facility] No Panel InformationOrdered By: Dr. Parish on 05-26-2022 Anti-Nuclear Antibody Screen Negative Negative [facility] Comment on above: Performed at: [facility] [address] [id number] Director: Jaden Silva MD, Phone: [phone] at: [employer] [facility] [address] [id number] Director: Trey Gandara PhD, Phone: [phone] Estimated GFR (MDRD) Amer 126 mL/min >60 [facility] Comment on above: GFR Calc Estimated GFR (MDRD) Non-Af Amer 104 mL/min >60 [facility] Comment on above: Non- GFR Calc Free Triiodothyronine (T3) pg/dL 2.9 pg/mL 2.18-3.98 [facility] Parathyroid Hormone (Intact) 57.7 pg/mL 18.4-80.1 [facility] Thyroid Stimulating Hormone (TSH) 0.56 uIU/mL 0.358-3.74 [facility] Serum or plasma albumin gallo urement (mass/volume)Ordered By: Dr. Parish on 05-26-2022 Albumin [Mass/Vol] 3.9 g/dL 3.2-5.0 [facility] Serum or plasma albumin/glob ulin mass ratioOrdered By: Dr. Parish on 05-26-2022 Albumin/Globulin [Mass ratio] 1.1 {ratio} 0.9-2.4 [facility] Serum or plasma calcitriol m easurement (mass/volume)Ordered By: Dr. Parish on 05-26-2022 1,25-dihydroxyvitamin D3 [Mass/Vol] 38.2 pg/mL 24.8-81.5 [facility] Serum or plasma calcium gallo urement (mass/volume)Ordered By: Dr. Parish on 05-26-2022 Calcium [Mass/Vol] 9.1 mg/dL 8.5-10.1 [facility] Serum or plasma creatinine m easurement (mass/volume)Ordered By: Dr. Parish on 05-26-2022 Creatinine [Mass/Vol] 0.63 mg/dL 0.55-1.02 [facility] Comment on above: The validity of the calculated GFR & GFRAA in patients over 70 years has not been determined. Clinical correlation is essential. Serum or plasma urea nitroge n measurement (mass/volume)Ordered By: Dr. Parish on 05-26-2022 Urea nitrogen [Mass/Vol] 11 mg/dL 7-18 [facility] Thin prep Papanicolaou smear with manual screeningOrdered By: Dr. Parish on 05-26-2022 Thin prep Papanicolaou smear with manual screening 20 U/L 15-37 [facility] Thin prep Papanicolaou smear with manual screening 10 5-15 [facility] - Chemistry and C hemistry - challengeOrdered By: Dr. Parish on 04-05-2022 Free T4 [Mass/Vol] 0.97 ng/dL 0.76-1.46 [facility] No Panel InformationOrdered By: Dr. Parish on 04-05-2022 Free Triiodothyronine (T3) pg/dL 2.3 pg/mL 2.18-3.98 [facility] Thyroid Stimulating Hormone (TSH) 2.66 uIU/mL 0.358-3.74 [facility] - Chemistry and C hemistry - challengeOrdered By: Kiera Stathopouljennifer on 12-30-2021 Free T4 [Mass/Vol] 0.99 ng/dL 0.76-1.46 [facility] No Panel InformationOrdered By: Kiera Stathopoulos on 12-30-2021 Thyroid Stimulating Hormone (TSH) 2.38 uIU/mL 0.358-3.74 [facility] Basophil percentageon 2021 Chloride [Moles/Vol] 102 mmol/L 98-107 [facility] Work Phone: Glucose [Mass/Vol] 99 mg/dL 74-106 [facility] Work Phone: Potassium [Moles/Vol] 3.8 mmol/L 3.5-5.1 [facility] Work Phone: Sodium [Moles/Vol] 138 mmol/L 136-145 [facility] Work Phone: Laboratory - Chemistry and C hemistry - challengeon 10-14-2021 CO2 [Moles/Vol] 30.0 mmol/L 21.0-32.0 [facility] Work Phone: Urea nitrogen/Creatinine [Mass ratio] 25.9 mg/mg 10-20 [facility] Work Phone: No Panel Informationon 10-14 Estimated GFR (MDRD) Amer 130 mL/min >60 [facility] Work Phone: Comment on above: GFR Calc Estimated GFR (MDRD) Non-Af Amer 107 mL/min >60 [facility] Work Phone: Comment on above: Non- GFR Calc Thyroid Stimulating Hormone (TSH) 2.92 uIU/mL 0.358-3.74 [facility] Work Phone: Serum or plasma calcium gallo urement (mass/volume)on 10-14-2021 Calcium [Mass/Vol] 9.3 mg/dL 8.5-10.1 [facility] Work Phone: Serum or plasma creatinine m easurement (mass/volume)on 10-14-2021 Creatinine [Mass/Vol] 0.62 mg/dL 0.55-1.02 [facility] Work Phone: Comment on above: The validity of the calculated GFR & GFRAA in patients over 70 years has not been determined. Clinical correlation is essential. Serum or plasma urea nitroge n measurement (mass/volume)on 10-14-2021 Urea nitrogen [Mass/Vol] 16 mg/dL 7-18 [facility] Work Phone: Thin prep Papanicolaou smear with manual screeningon 10-14-2021 Thin prep Papanicolaou smear with manual screening 6 5-15 [facility] Work Phone: Vital Signs Date Time Vital Sign Value Performing Clinician Faci lity 06-18-2024 09:41-0400 Body height 157.5 cm Cara Wellington MD Work Phone: [facility] 06-18-2024 09:41-0400 Body mass index (BMI) [Ratio] 28.17 kg/m2 Cara Wellington MD Work Phone: [facility] 06-18-2024 09:41-0400 Body weight 69.85 kg Cara Wellington MD Work Phone: [facility] 06-18-2024 09:41-0400 Diastolic blood pressure 90 mm[Hg] Cara Wellington MD Work Phone: [facility] 06-18-2024 09:41-0400 Systolic blood pressure 142 mm[Hg] Cara Wellington MD Work Phone: [facility] 06-27-2023 13:28-0400 Body height 157.[address] Khurram Parish Work Phone: [facility] 06-27-2023 13:22-0400 Body mass index (BMI) [Ratio] 28.7 kg/m2 Dr. Khurram Parish Work Phone: [facility] 06-27-2023 13:22-0400 Body weight 71.[address] Khurram Parish Work Phone: [facility] 06-27-2023 13:22-0400 Diastolic blood pressure 82 mm[Hg] Dr. Khurram Parish Work Phone: [facility] 06-27-2023 13:22-0400 Systolic blood pressure 126 mm[Hg] Dr. Khurram Parish Work Phone: [facility] Encounters Encounter Date Encounter Type Care Provider Facility Start: 08-04-2024 ambulatory Wai Skinner MAINTENANCE AND UTILITIES SUPERVISOR Facil ity:[facility] Start: 06-18-2024 End: 06-18-2024 Patient encounter status Cara Wellington MD Work Phone: [facility] Work Phone: Start: 06-18-2024 End: 06-18-2024 Periodic [...] l adult medical examination without abnormal findings [facility] Start: 12-05-2023 End: 12-05-2023 ambulatory [facility] Facility:[facility] Start: 11-14-2023 End: 11-14-2023 Orders Only Cara Wellington MD Work Phone: [facility] Comment on above: Symptomatic menopaus al or female climacteric states (Primary Dx) Start: 10-03-2023 End: 10-03-2023 ambulatory CARA WELLINGTON Not Available Start: 06-27-2023 End: 06-27-[address] Khurram Parish Work Phone: [facility] Work Phone: Start: 06-26-2023 End: 06-26-[address] Khurram Parish Work Phone: [facility] Work Phone: Start: 06-26-2023 End: 06-26-[address] Khurram Parish Work Phone: [facility] Work Phone: Start: 12-01-2022 End: 12-01-2022 ambulatory [facility] Work Phone: Start: 12-01-2022 End: 12-01-2022 Patient encounter procedure [facility] Start: 11-24-2022 End: 11-24-2022 Patient encounter procedure [facility] Work Phone: Start: 05-26-2022 End: 05-26-2022 ambulatory [facility] Work Phone: Start: 05-26-2022 End: 05-26-2022 Patient encounter procedure [facility] Start: 04-05-2022 End: 04-05-2022 ambulatory [facility] Work Phone: Start: 04-05-2022 End: 04-05-2022 Patient encounter procedure [facility] Start: 12-30-2021 End: 12-30-2021 Patient encounter procedure [facility] Start: 10-14-2021 End: 10-14-2021 Patient encounter procedure [facility] Procedures Date Procedure Procedure Detail Performing Clinician Start: 06-26-2023 Screening mammography Pedro Luis Parish Work Phone: Start: 10-08-2014 Mammography Cara Wellington MD Work Phone: Plan of Treatment Date Care Activity Detail Author Start: 04-02-2027 Screening for malignant neoplasm of colon [facility] Start: 07-01-2025 End: 07-01-2025 Patient encounter procedure 07/01/2025 8:30 AM EDT Office Visit [facility] [address] [place] [id number] Cara Wellington MD [address] [place] [address] [facility] Start: 07-16-2024 End: 10-15-2024 DBT Breast - bilateral screening Bilateral screening mammogram with tomosynthesis Imaging Routine Screening mammogram, encounter for Expected: 07/16/2024, Expires: 10/15/2024 [facility] Comment on above: Expected: 07/16/2024 , Expires: 10/15/2024 Start: 06-18-2024 End: 07-16-2024 THINPREP TIS PAP AND HPV MRNA E6/E7 WITH REFLEX TO HPV 16,18/45 THINPREP TIS PAP AND HPV MRNA E6/E7 WITH REFLEX TO HPV 16,18/45 Pathology and Cytology Routine Encounter for gynecological examination without abnormal finding Expected: 06/18/2024 (Approximate), Expires: 07/16/2024 [facility] Work Phone: Comment on above: Expected: 06/18/2024 (Approximate), Expires: 07/16/2024 Start: 06-18-2024 End: 06-18-2024 Patient encounter procedure 06/18/2024 9:50 AM EDT Office Visit [facility] [address] [place] [phone] Cara Wellington MD [address] [place] [address] [facility] Start: 11-25-2023 Influenza vaccination Influenza Vacc ine (#1) [facility] Start: 10-09-2015 Screening for malignant neoplasm of breast Mammogram [facility] Start: 05-29-1997 Screening for malignant neoplasm of cervix [facility] Start: 05-29-1988 Screening for malignant neoplasm of cervix Pap Smear [facility] Start: 1965 Screening for malignant neoplasm of colon [facility] Payers Date Payer Category Payer Self-pay [id number] 2014 Private Health Insurance [id number] 2014 Unknown [id number] 1965 Unknown [id number] 1967 Unknown [id number] Unknown [id number] Unknown [id number] [id number] Unknown [id number] Social History Date Type Detail Facility Start: 10-27-2020 End: 06-27-2023 Tobacco smoking status AKIS Unknown if ever smoked [facility] Start: 1965 Sex Assigned At Female [facility] Start: 10-03-2023 [facility] Start: 10-03-2023 Tobacco use and exposure Smokeless tobacco non-user [facility] Start: 10-03-2023 End: 06-18-2024 Alcoholic beverage intake Current drinker of alcohol (finding) [facility] Start: 10-03-2023 End: 06-18-2024 Alcoholic beverage intake [facility] Start: 10-03-2023 End: 06-18-2024 Tobacco use panel [facility] Start: 1965 Sex assigned at Not on file [facility] History of Present illness Narrative 06-18-2024 Cara Wellington MD - 06/18/2024 9:50 AM EDT Note Date & Type Note Facility 06-18-2024 History of Presen t illness Narrative Chief Complaint Patient presents with Annual Exam VC for AI note, 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 She reports no new health concerns. Her blood pressure, cholesterol, and glucose levels are all within normal ranges. Her last mammogram was conducted a year ago at [place]. 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) Reason for Visit Encounter for screen ing [...] Provide r, Attending Provider, Referring Provider Active Director Of Event Management Relationship Specialty Start Date End Date Unallocated, Lita Hawthorne MD [address] [place] [address] PCP - General Family Medicine 10/03/23 Director Of Event Management Relationship Specialty Start Date End Date Unallocated, Lita Provider, [place] [address] PCP - General Family Medicine 10/03/23 Reason for Visit (unrecogniz ed section and content) Reason Comments Annual Exam VC for AI note, no c haperone INFORMATION SOURCE (unrecogn ized section and content) DATE CREATED AUTHOR 06/19/2024 [facility] EPIC DATE CREATED AUTHOR 'S ORGANIZ ATION 08/03/2024 [facility] FOR RECORDS PERTAINING TO PATIENTS WHO ARE [...] BE BASED ON THE PRIMARY CLINICAL RECORDS. [employer] provides no warranty or guarantee of the accuracy or completeness of information in this document.
[2024-11-01 11:14] LABS: AST(SGOT) 16 U/L (<=31); Alanine Aminotransfer ALT/SGPT 16 U/L (<=34); Albumin, Serum 4.2 g/dL (3.5-5.0); Alkaline Phosphatase 85 U/L (35-104); Anion Gap 10 (5-15); BUN 13 mg/dL (4-19); BUN/Creat Ratio 20.0 RATIO (10-20); Calcium,Total 9.5 mg/dL (7.6-11.0); Carbon Dioxide 27.7 mmol/L (21.0-32.0); Chloride 99 mmol/L (98-108); Estimated Creatinine Clearance 87.79 ml/min (50-250); Globulin 2.8 g/dL (2.2-4.2); Glucose 103 mg/dL (70-99); Potassium 4.1 mmol/L (3.3-5.1)
[2024-11-01 12:07] VITALS: BP 165/99; PULSE 91; RESP 18; O2SAT 99
[2024-11-01 12:11] LABS: Mucous, Urine 0 SEEN /hpf (<or=2+); Red Blood Cells-Urine 0 SEEN /hpf (0-5); Squamous Epithelial Cells - UA 0 SEEN /hpf (5-10)
[2024-11-01 12:12] LABS: Color, Urine Yellow (Yellow); Glucose, Dipstick Normal (Normal); Ketone-Dipstick Negative (Negative); Leukocyte Esterase-Dipstick Negative /ul (Negative); Nitrite-Dipstick Negative (Negative); Occult Blood-Urine Negative /ul (Negative); Protein-Dipstick Negative (Negative); Specific Gravity, Urine 1.010 (1.002-1.030); Urine Bilirubin Dipstick Negative (Negative)
[2024-11-01 14:00] VITALS: BP 168/89; PULSE 76; RESP 18; O2SAT 99
[2024-11-01 14:41] VITALS: BP 168/89; PULSE 76; RESP 18; TEMP 36.7; O2SAT 99
== END 2024-11-01 14:47 | disposition home or self-care (01) ==
PROVIDERS: Emergency Provider Student in an Organized Health Care Education/Training Program; PCP Family Medicine; Visit Provider Student in an Organized Health Care Education/Training Program
DX: R10.2 Pelvic and perineal pain (principal); E27.8 Other specified disorders of adrenal gland; J45.909 Unspecified asthma, uncomplicated; D72.829 Elevated white blood cell count, unspecified
CPT/HCPCS: 74177; 80053; 81001; 85025; 96374; 96375; 96376; 99282; Q9967; A4216

== ENCOUNTER → 2024-11-01 | Outpatient (CLI) | payer OTHER, SELFPAY ==
--- OUTSIDE RECORDS SUMMARY | 2024-11-01 08:12 | XMS RPT_ITS | CCD ---
Author Organization [facility] Care Team Providers Care [employer] Name Role Phone Dr. Khurram Parish Primary Care Provider Dr. Khurram Parish Referring Provider NIRAV Cardona Attending Provider Unallocated MD, Noms Provider Primary Care Provi margaux Unallocated , Noms Provider Primary Care Provi margaux CARA WELLINGTON Attending Unavailable CARA WELLINGTON Attending Unavailable Judy Santana Primary Care Unavailable Judy Santana Attending Unavailable Judy Santana Referring Unavailable McMorrow SPECIAL SERVICE OFFICER, Wai Attending Unavailable McMorrow SPECIAL SERVICE OFFICER, Wai Referring Unavailable Judy Santana Primary Care Unavailable Allergies Allergy Classification Reported Allergen(s) Allergy Type Date of Onset Reaction(s) Facility (9 sources) Penicillins; Translations: [Penicillins] Allergy to substance 1965 Anaphylaxis [facility] Medications Current Medications Medication Drug Class(es) Dates Sig (Normalized) Sig (Original) active liver (5 sources) Start: 10-27-2020 active liver A ctive PO October 26, 2020 11:00pm Start: 10-27-2020 active liver A ctive PO October 27, 2020 12:00am Albuterol (5 sources) beta2-Adrenergic Agonist Start: 10-27-2020 Albut rukhsana Active MCG INHALATION October 26, 2020 11:00pm Start: 10-27-2020 Albuterol Acti ve MCG INHALATION October 27, 2020 12:00am ergocalciferol 1.25 mg oral capsule (2 sources) Provitamin D2 Compound Start: 06-06-2024 take 1 capsule by mouth every week ergocalciferol (Vitamin D2) 1.25 MG (53668 UT) capsule Take 1 capsule by mouth 1 (one) time per week 06/06/2024 Active levothyroxine sodium 0.075 mg oral capsule (4 sources) l-Thyroxine Start: 06-27-2023 take 75 ug by mouth once daily Levothyroxine Active 75 MCG PO DAILY June 27, 2023 12:00am levothyroxine (S ynthroid, Levoxyl) 50 MCG tablet Active 24 hr loratadine 10 mg / pseudoephedrine sulfate 240 mg extended release oral tablet (8 sources) alpha-Adrenergic Agonist Start: 10-27-2020 take 1 tablet by mouth once daily, then take 1 tablet by mouth every twenty-four hours Loratadine-Pseudoephedrine (Claritin-D 24 Hour) 10-240 mg tablet extended release 24 hr Active 1 TABLET PO DAILY October 27, 2020 12:00am Loratadine-Pseud oephedrine (CLARITIN-D 24 HOUR PO) Active progesterone 100 mg oral capsule (5 sources) Progesterone Start: 06-18-2024 End: 06-18-2025 take 2 capsules by mouth at bedtime progesterone (Prometrium) 100 MG capsule Indications: Symptomatic menopausal or female climacteric states Take 2 capsules (200 mg) by mouth at bedtime 60 capsule 11 06/18/2024 06/18/2025 Active Start: 11-14-2023 End: 11-13-2024 take 1 capsule by mouth once daily progesterone (Prometrium) 100 MG capsule Indications: Symptomatic menopausal or female climacteric states Take 1 capsule (100 mg) by mouth Daily 30 capsule 11 11/14/2023 06/15/2024 Discontinued (Reorder) Problems Active Problems Problem Classification Problem Date Documented Da te Episodic/Chronic Menopausal disorders (3 sources) Menopausal symptom; Translations: [Menopausal and female climacteric states] 11-14-2023 Chronic Other screening for suspected conditions (not mental disorders or infectious disease) (8 sources) Patient encounter status; Translations: [Encounter for other screening for malignant neoplasm of breast] Onset: 06-15-2024 06-27-2023 Episodic Residual codes; unclassified (1 source) Decreased libido; Translations: [Decreased libido] 06-27-2023 Episodic Thyroid disorders (2 sources) Hypothyroidism; Translations: [Hypothyroidism, unspecified] 06-15-2024 Chronic Past or Other Problems Problem Classification Problem Date Documented Da te Episodic/Chronic Residual codes; unclassified (3 sources) Family history of malignant neoplasm of uterus; Translations: [Family history of malignant neoplasm of other genital organs] Onset: 10-03-2023 10-03-2023 Episodic Results Test Name Value Interpretation Reference Range Facility CBC W/Diff, Automatedon 09- Absolute Lymph 2.37 X10 3/uL Normal 0.83-4.51 [facility] Comment on above: Performed By: #### L 500.4100, L500.4050, L100.0100, L501.9520, L506.1000 #### [facility] [address] [place], [address] Absolute Neut 2.6 X10 3/uL Normal 2.0-7.7 [facility] Comment on above: Performed By: #### L 500.4100, L500.4050, L100.0100, L501.9520, L506.1000 #### [facility] [address] [place], [address] Basophils/100 WBC (Bld) 1.2 % High 0-1 [facility] Comment on above: Performed By: #### L 500.4100, L500.4050, L100.0100, L501.9520, L506.1000 #### [facility] [address] [place], [address] Eosinophils/100 WBC (Bld) 5.8 % High 0-5 [facility] Comment on above: Performed By: #### L 500.4100, L500.4050, L100.0100, L501.9520, L506.1000 #### [facility] [address] [place], [address] Erythrocyte distribution width (RBC) [Ratio] 12.4 % Normal 11.6-14.6 [facility] Comment on above: Performed By: #### L 500.4100, L500.4050, L100.0100, L501.9520, L506.1000 #### [facility] [address] [place], [address] Hematocrit (Bld) [Volume fraction] 44.4 % Normal 37-47 [facility] Comment on above: Performed By: #### L 500.4100, L500.4050, L100.0100, L501.9520, L506.1000 #### [facility] [address] [place], [address] Hemoglobin (Bld) [Mass/Vol] 14.7 g/dL Normal 12.0-15.0 [facility] Comment on above: Performed By: #### L 500.4100, L500.4050, L100.0100, L501.9520, L506.1000 #### [facility] [address] [place], [address] IG% 0.300 Normal 0.0-0.9 [facility] Comment on above: Result Comment: IG% - Immature Granulocytes (promyelocytes, myelocytes and metamyelocytes) > 1% indicates that a LEFT SHIFT is Present. Performed By: #### L 500.4100, L500.4050, L100.0100, L501.9520, L506.1000 #### [facility] [address] [place], [address] Lymphocytes/100 WBC (Bld) 40.2 % Normal 19-41 [facility] Comment on above: Performed By: #### L 500.4100, L500.4050, L100.0100, L501.9520, L506.1000 #### [facility] [address] [place], [address] MCH (RBC) [Entitic mass] 31.5 pg Normal 27.0-32.0 [facility] Comment on above: Performed By: #### L 500.4100, L500.4050, L100.0100, L501.9520, L506.1000 #### [facility] [address] [place], [address] MCHC (RBC) [Mass/Vol] 33.1 g/dL Normal 32-36 [facility] Comment on above: Performed By: #### L 500.4100, L500.4050, L100.0100, L501.9520, L506.1000 #### [facility] [address] [place], [address] MCV (RBC) [Entitic vol] 95.3 fL Normal 81-99 [facility] Comment on above: Performed By: #### L 500.4100, L500.4050, L100.0100, L501.9520, L506.1000 #### [facility] [address] [place], [address] Monocytes/100 WBC (Bld) 9.3 % Normal 0-10 [facility] Comment on above: Performed By: #### L 500.4100, L500.4050, L100.0100, L501.9520, L506.1000 #### [facility] [address] [place], [address] Neutrophils/100 WBC (Bld) 43.2 % Low 47-70 [facility] Comment on above: Performed By: #### L 500.4100, L500.4050, L100.0100, L501.9520, L506.1000 #### [facility] [address] [place], [address] Nucleated RBC (Bld) [#/Vol] 0 10*3/uL Normal 0-5 [facility] Comment on above: Performed By: #### L 500.4100, L500.4050, L100.0100, L501.9520, L506.1000 #### [facility] [address] [place], [address] Platelet mean volume (Bld) [Entitic vol] 9.8 fL Normal 6.2-12.0 [facility] Comment on above: Performed By: #### L 500.4100, L500.4050, L100.0100, L501.9520, L506.1000 #### [facility] [address] [place], [address] Platelets (Bld) [#/Vol] 313 10*3/uL Normal 150-450 [facility] Comment on above: Performed By: #### L 500.4100, L500.4050, L100.0100, L501.9520, L506.1000 #### [facility] [address] [place], [address] RBC (Bld) [#/Vol] 4.66 10*6/uL Normal 4.2-5.4 [facility] Comment on above: Performed By: #### L 500.4100, L500.4050, L100.0100, L501.9520, L506.1000 #### [facility] [address] [place], [address] RDW SD 43.9 fl Normal 35.1-43.9 [facility] Comment on above: Performed By: #### L 500.4100, L500.4050, L100.0100, L501.9520, L506.1000 #### [facility] [address] [place], [address] WBC (Bld) [#/Vol] 5.9 10*3/uL Normal 4.4-11.0 [facility] Comment on above: Performed By: #### L 500.4100, L500.4050, L100.0100, L501.9520, L506.1000 #### [facility] [address] [place], [address] [facility] Albumin [Mass/Vol] 3.8 g/dL Normal 3.2-5.0 [facility] Comment on above: Performed By: #### L 500.4100, L500.4050, L100.0100, L501.9520, L506.1000 #### [facility] [address] [place], [address] Albumin/Globulin [Mass ratio] 1.0 {ratio} Normal 0.9-2.4 [facility] Comment on above: Performed By: #### L 500.4100, L500.4050, L100.0100, L501.9520, L506.1000 #### [facility] [address] [place], [address] ALK P 87 U/L Normal 45-117 [facility] Comment on above: Performed By: #### L 500.4100, L500.4050, L100.0100, L501.9520, L506.1000 #### [facility] [address] [place], [address] ALT [Catalytic activity/Vol] 20 U/L Normal 13-56 [facility] Comment on above: Performed By: #### L 500.4100, L500.4050, L100.0100, L501.9520, L506.1000 #### [facility] [address] [place], [address] AST [Catalytic activity/Vol] 14 U/L Low 15-37 [facility] Comment on above: Performed By: #### L 500.4100, L500.4050, L100.0100, L501.9520, L506.1000 #### [facility] [address] [place], [address] Bilirubin [Mass/Vol] 0.50 mg/dL Normal 0.20-1.00 [facility] Comment on above: Result Comment: For patients on eltrombopag therapy, use of Dimension [place] TBIL is not recommended. Performed By: #### L 500.4100, L500.4050, L100.0100, L501.9520, L506.1000 #### [facility] [address] [place], [address] BUN/CRE 23.8 RATIO High 10-20 [facility] Comment on above: Performed By: #### L 500.4100, L500.4050, L100.0100, L501.9520, L506.1000 #### [facility] [address] [place], [address] CA,Total 9.3 mg/dL Normal 8.5-10.1 [facility] Comment on above: Performed By: #### L 500.4100, L500.4050, L100.0100, L501.9520, L506.1000 #### [facility] [address] [place], [address] Chloride [Moles/Vol] 104 mmol/L Normal 98-107 [facility] Comment on above: Performed By: #### L 500.4100, L500.4050, L100.0100, L501.9520, L506.1000 #### [facility] [address] [place], [address] CO2 [Moles/Vol] 29.0 mmol/L Normal 21.0-32.0 [facility] Comment on above: Performed By: #### L 500.4100, L500.4050, L100.0100, L501.9520, L506.1000 #### [facility] [address] [place], [address] Creatinine [Mass/Vol] 0.76 mg/dL Normal 0.55-1.02 [facility] Comment on above: Result Comment: The validity of the calculated GFR GFRAA in patients over 70 years has not been determined. Clinical correlation is essential. Performed By: #### L 500.4100, L500.4050, L100.0100, L501.9520, L506.1000 #### [facility] [address] [place], [address] EST GFR - AA 102 mL/min Normal >60 [facility] Comment on above: Result Comment: Afri can Micronesian GFR Calc Performed By: #### L 500.4100, L500.4050, L100.0100, L501.9520, L506.1000 #### [facility] [address] [place], [address] GAP 4 Low 5-15 [facility] Comment on above: Performed By: #### L 500.4100, L500.4050, L100.0100, L501.9520, L506.1000 #### [facility] [address] [place], [address] GFR/1.73 sq M.predicted among non-blacks MDRD (S/P/Bld) [Vol rate/Area] 84 mL/min/{1.73_m2} Normal >60 [facility] Comment on above: Result Comment: Non- GFR Calc Performed By: #### L 500.4100, L500.4050, L100.0100, L501.9520, L506.1000 #### [facility] [address] [place], [address] Globulin (S) [Mass/Vol] 3.7 g/dL Normal 2.2-4.2 [facility] Comment on above: Performed By: #### L 500.4100, L500.4050, L100.0100, L501.9520, L506.1000 #### [facility] [address] [place], [address] Glucose [Mass/Vol] 89 mg/dL Normal 74-106 [facility] Comment on above: Performed By: #### L 500.4100, L500.4050, L100.0100, L501.9520, L506.1000 #### [facility] [address] [place], [address] Potassium [Moles/Vol] 3.9 mmol/L Normal 3.5-5.1 [facility] Comment on above: Performed By: #### L 500.4100, L500.4050, L100.0100, L501.9520, L506.1000 #### [facility] [address] [place], [address] Sodium [Moles/Vol] 137 mmol/L Normal 136-145 [facility] Comment on above: Performed By: #### L 500.4100, L500.4050, L100.0100, L501.9520, L506.1000 #### [facility] [address] [place], [address] T PROT 7.5 g/dL Normal 6.4-8.2 [facility] Comment on above: Performed By: #### L 500.4100, L500.4050, L100.0100, L501.9520, L506.1000 #### [facility] [address] [place], [address] Urea nitrogen [Mass/Vol] 18 mg/dL Normal 7-18 [facility] Comment on above: Performed By: #### L 500.4100, L500.4050, L100.0100, L501.9520, L506.1000 #### [facility] [address] [place], [address] Lipid Profileon 12-05-2023 Cholesterol [Mass/Vol] 234 mg/dL High 200 [facility] Comment on above: Result Comment: <200 mg/dL Desirable 200-240 mg/dL Borderline >240 mg/dL High Risk Performed By: #### L 500.4100, L500.4050, L100.0100, L501.9520, L506.1000 #### [facility] [address] [place], [address] Cholesterol in HDL [Mass/Vol] 106 mg/dL Normal [facility] Comment on above: Result Comment: The drugs N-Acetylcysteine and Metamizole may falsely depress this assay. Reference Range HDL <40 mg/dL Low HDL Cholesterol HDL >or= 60 mg/dL High HDL Cholesterol Performed By: #### L 500.4100, L500.4050, L100.0100, L501.9520, L506.1000 #### [facility] [address] [place], [address] Cholesterol in LDL [Mass/Vol] 114 mg/dL Normal 0-130 [facility] Comment on above: Performed By: #### L 500.4100, L500.4050, L100.0100, L501.9520, L506.1000 #### [facility] [address] [place], [address] Cholesterol in VLDL [Mass/Vol] 14 mg/dL Normal 5-40 [facility] Comment on above: Performed By: #### L 500.4100, L500.4050, L100.0100, L501.9520, L506.1000 #### [facility] [address] [place], [address] Triglyceride [Mass/Vol] 68 mg/dL Normal [facility] Comment on above: Result Comment: The drugs N-Acetylcysteine and Metamizole may falsely depress this assay. Serum Triglycerides Reference Interval Normal <150 mg/dL Borderline high 150 - 199 mg/dL High 200 - 499 mg/dL Very High > or = 500 mg/dL Performed By: #### L 500.4100, L500.4050, L100.0100, L501.9520, L506.1000 #### [facility] [address] [place], [address] Thyroid Stim Hormone (TSH)on 12-05-2023 TSH 3.210 uIU/mL Normal 0.358-3.740 [facility] Comment on above: Performed By: #### L 500.4100, L500.4050, L100.0100, L501.9520, L506.1000 #### [facility] [address] [place], [address] Vitamin D,25 Hydroxyon 12-04 Vitamin D 25-OH 29.3 ng/mL Normal [facility] Comment on above: Result Comment: Lilliam min D 25(OH) Status Range Deficiency <20 ng/mL (50nmol/L) Insufficiency 20 - 30 ng/mL (50 - 75 nmol/L) Sufficiency 30 - 100 ng/mL (75 - 250 nmol/L) Toxicity >100 ng/mL (>250 nmol/L) Performed By: #### L 500.4100, L500.4050, L100.0100, L501.9520, L506.1000 #### [facility] [address] [place], [address] Basophil percentageOrdered B y: Khurram Parish on 12-01-2022 Cholesterol [Mass/Vol] 220 mg/dL <200 [facility] Comment on above: <200 mg/dL Desirable 200-240 mg/dL Borderline >240 mg/dL High Risk Triglyceride [Mass/Vol] 63 mg/dL <199 [facility] Comment on above: The drugs N-Acetylcy steine and Metamizole may falsely depress this assay.Serum Triglycerides Reference Interval Normal <150 mg/dL Borderline high 150 - 199 mg/dL High 200 - 499 mg/dL Very High > or = 500 mg/dL Laboratory - Chemistry and C hemistry - challengeOrdered By: Khurram Parish on 12-01-2022 ALT [Catalytic activity/Vol] 20 U/L 13-56 [facility] No Panel InformationOrdered By: Khurram Parish on 12-01-2022 Estimated GFR (MDRD) Amer 128 mL/min >60 [facility] Comment on above: GFR Calc Estimated GFR (MDRD) Non-Af Amer 105 mL/min >60 [facility] Comment on above: Non- GFR Calc Thyroid Stimulating Hormone (TSH) 2.03 uIU/mL 0.358-3.74 [facility] Serum or plasma cholesterol in HDL measurement (mass/volume)Ordered By: Khurram Parish on 12-01-2022 Cholesterol in HDL [Mass/Vol] 86 mg/dL >40 [facility] Comment on above: The drugs N-Acetylcy steine and Metamizole may falsely depress this assay. Reference Range HDL <40 mg/dL Low HDL Cholesterol HDL >or= 60 mg/dL High HDL Cholesterol Serum or plasma cholesterol in VLDL measurement (mass/volume)Ordered By: Khurram Parish on 12-01-2022 Cholesterol in VLDL [Mass/Vol] 13 mg/dL 5-40 [facility] Serum or plasma creatinine m easurement (mass/volume)Ordered By: Khurram Parish on 12-01-2022 Creatinine [Mass/Vol] 0.62 mg/dL 0.55-1.02 [facility] Comment on above: The validity of the calculated GFR & GFRAA in patients over 70 years has not been determined. Clinical correlation is essential. Serum or plasma low density lipoprotein (LDL) cholesterol measurement (mass/volume)Ordered By: Khurram Parish on 12-01-2022 Cholesterol in LDL [Mass/Vol] 121 mg/dL 0-130 [facility] Laboratory - Chemistry and C hemistry - challengeOrdered By: Kiera Feldman on 11-24-2022 Free T4 [Mass/Vol] 1.08 ng/dL 0.76-1.46 [facility] Basophil percentageOrdered B y: Dr. Parish on 05-26-2022 Bilirubin [Mass/Vol] 0.50 mg/dL 0.20-1.00 [facility] Comment on above: For patients on eltr ombopag therapy, use of Dimension [place] TBIL is not recommended. Chloride [Moles/Vol] 100 mmol/L 98-107 [facility] Glucose [Mass/Vol] 91 mg/dL 74-106 [facility] Potassium [Moles/Vol] 3.8 mmol/L 3.5-5.1 [facility] Protein [Mass/Vol] 7.5 g/dL 6.4-8.2 [facility] Sodium [Moles/Vol] 138 mmol/L 136-145 [facility] Laboratory - Chemistry and C hemistry - challengeOrdered By: Dr. Parish on 05-26-2022 ALP [Catalytic activity/Vol] 93 U/L 45-117 [facility] ALT [Catalytic activity/Vol] 24 U/L 13-56 [facility] CO2 [Moles/Vol] 28.0 mmol/L 21.0-32.0 [facility] Free T4 [Mass/Vol] 1.33 ng/dL 0.76-1.46 [facility] Globulin (S) [Mass/Vol] 3.6 g/dL 2.2-4.2 [facility] Urea nitrogen/Creatinine [Mass ratio] 17.5 mg/mg 10-20 [facility] No Panel InformationOrdered By: Dr. Parish on 05-26-2022 Anti-Nuclear Antibody Screen Negative Negative [facility] Comment on above: Performed at: [employer] [facility] [employer] [address] [id number] Director: Jaden Silva MD, Phone: [phone] at: [employer] [facility] [address] [id number] Director: Trey Gandara PhD, Phone: [phone] Estimated GFR (MDRD) Amer 126 mL/min >60 [facility] Comment on above: GFR Calc Estimated GFR (MDRD) Non-Af Amer 104 mL/min >60 [facility] Comment on above: Non- GFR Calc Free Triiodothyronine (T3) pg/dL 2.9 pg/mL 2.18-3.98 [facility] Parathyroid Hormone (Intact) 57.7 pg/mL 18.4-80.1 [facility] Thyroid Stimulating Hormone (TSH) 0.56 uIU/mL 0.358-3.74 [facility] Serum or plasma albumin gallo urement (mass/volume)Ordered By: Dr. Parish on 05-26-2022 Albumin [Mass/Vol] 3.9 g/dL 3.2-5.0 [facility] Serum or plasma albumin/glob ulin mass ratioOrdered By: Dr. Parish on 05-26-2022 Albumin/Globulin [Mass ratio] 1.1 {ratio} 0.9-2.4 [facility] Serum or plasma calcitriol m easurement (mass/volume)Ordered By: Dr. Parish on 05-26-2022 1,25-dihydroxyvitamin D3 [Mass/Vol] 38.2 pg/mL 24.8-81.5 [facility] Serum or plasma calcium gallo urement (mass/volume)Ordered By: Dr. Parish on 05-26-2022 Calcium [Mass/Vol] 9.1 mg/dL 8.5-10.1 [facility] Serum or plasma creatinine m easurement (mass/volume)Ordered By: Dr. Parish on 05-26-2022 Creatinine [Mass/Vol] 0.63 mg/dL 0.55-1.02 [facility] Comment on above: The validity of the calculated GFR & GFRAA in patients over 70 years has not been determined. Clinical correlation is essential. Serum or plasma urea nitroge n measurement (mass/volume)Ordered By: Dr. Parish on 05-26-2022 Urea nitrogen [Mass/Vol] 11 mg/dL 7-18 [facility] Thin prep Papanicolaou smear with manual screeningOrdered By: Dr. Parish on 05-26-2022 Thin prep Papanicolaou smear with manual screening 20 U/L 15-37 [facility] Thin prep Papanicolaou smear with manual screening 10 5-15 [facility] Laboratory - Chemistry and C hemistry - challengeOrdered By: Dr. Parish on 04-05-2022 Free T4 [Mass/Vol] 0.97 ng/dL 0.76-1.46 [facility] No Panel InformationOrdered By: Dr. Parish on 04-05-2022 Free Triiodothyronine (T3) pg/dL 2.3 pg/mL 2.18-3.98 [facility] Thyroid Stimulating Hormone (TSH) 2.66 uIU/mL 0.358-3.74 [facility] - Chemistry and C hemistry - challengeOrdered By: Kiera Stathopouljennifer on 12-30-2021 Free T4 [Mass/Vol] 0.99 ng/dL 0.76-1.46 [facility] No Panel InformationOrdered By: Kiera Stathopoulos on 12-30-2021 Thyroid Stimulating Hormone (TSH) 2.38 uIU/mL 0.358-3.74 [facility] Basophil percentageon 2021 Chloride [Moles/Vol] 102 mmol/L 98-107 [facility] Work Phone: Glucose [Mass/Vol] 99 mg/dL 74-106 [facility] Work Phone: Potassium [Moles/Vol] 3.8 mmol/L 3.5-5.1 [facility] Work Phone: Sodium [Moles/Vol] 138 mmol/L 136-145 [facility] Work Phone: Laboratory - Chemistry and C hemistry - challengeon 10-14-2021 CO2 [Moles/Vol] 30.0 mmol/L 21.0-32.0 [facility] Work Phone: Urea nitrogen/Creatinine [Mass ratio] 25.9 mg/mg 10-20 [facility] Work Phone: No Panel Informationon 10-14 Estimated GFR (MDRD) Amer 130 mL/min >60 [facility] Work Phone: Comment on above: GFR Calc Estimated GFR (MDRD) Non-Af Amer 107 mL/min >60 [facility] Work Phone: Comment on above: Non- GFR Calc Thyroid Stimulating Hormone (TSH) 2.92 uIU/mL 0.358-3.74 [facility] Work Phone: Serum or plasma calcium gallo urement (mass/volume)on 10-14-2021 Calcium [Mass/Vol] 9.3 mg/dL 8.5-10.1 [facility] Work Phone: Serum or plasma creatinine m easurement (mass/volume)on 10-14-2021 Creatinine [Mass/Vol] 0.62 mg/dL 0.55-1.02 [facility] Work Phone: Comment on above: The validity of the calculated GFR & GFRAA in patients over 70 years has not been determined. Clinical correlation is essential. Serum or plasma urea nitroge n measurement (mass/volume)on 10-14-2021 Urea nitrogen [Mass/Vol] 16 mg/dL 7-18 [facility] Work Phone: Thin prep Papanicolaou smear with manual screeningon 10-14-2021 Thin prep Papanicolaou smear with manual screening 6 5-15 [facility] Work Phone: Vital Signs Date Time Vital Sign Value Performing Clinician Faci lity 06-18-2024 09:41-0400 Body height 157.5 cm Cara Wellington MD Work Phone: [facility] 06-18-2024 09:41-0400 Body mass index (BMI) [Ratio] 28.17 kg/m2 Cara Wellington MD Work Phone: [facility] 06-18-2024 09:41-0400 Body weight 69.85 kg Cara Wellington MD Work Phone: [facility] 06-18-2024 09:41-0400 Diastolic blood pressure 90 mm[Hg] Cara Wellington MD Work Phone: [facility] 06-18-2024 09:41-0400 Systolic blood pressure 142 mm[Hg] Cara Wellington MD Work Phone: [facility] 06-27-2023 13:28-0400 Body height 157.[address] Khurram Parish Work Phone: [facility] 06-27-2023 13:22-0400 Body mass index (BMI) [Ratio] 28.7 kg/m2 Dr. Khurram Parish Work Phone: [facility] 06-27-2023 13:22-0400 Body weight 71.[address] Khurram Parish Work Phone: [facility] 06-27-2023 13:22-0400 Diastolic blood pressure 82 mm[Hg] Dr. Khurram Parish Work Phone: [facility] 06-27-2023 13:22-0400 Systolic blood pressure 126 mm[Hg] Dr. Khurram Parish Work Phone: [facility] Encounters Encounter Date Encounter Type Care Provider Facility Start: 08-04-2024 ambulatory Wai Skinner SPECIAL SERVICE OFFICER Facil ity:[facility] Start: 06-18-2024 End: 06-18-2024 Patient encounter status Cara Wellington MD Work Phone: [facility] Work Phone: Start: 06-18-2024 End: 06-18-2024 Periodic preventive med est patient 40-64yrs Cara Wellington MD Work Phone: [facility] Comment on above: Encounter for gyneco logical examination without abnormal finding (Primary Dx); Screening mammogram, encounter for; Encounter for colorectal cancer screening using Cologuard test; Symptomatic menopausal or female climacteric states Start: 06-18-2024 End: 06-18-2024 ambulatory CARA WELLINGTON Not Available Start: 12-25-2023 Encounter for genera l adult medical examination without abnormal findings [facility] Start: 12-05-2023 End: 12-05-2023 ambulatory [facility] Facility:[facility] Start: 11-14-2023 End: 11-14-2023 Orders Only Cara Wellington MD Work Phone: [facility] Comment on above: Symptomatic menopaus al or female climacteric states (Primary Dx) Start: 10-03-2023 End: 10-03-2023 ambulatory CARA WELLINGTON Not Available Start: 06-27-2023 End: 06-27-[address] Khurram Parish Work Phone: [facility] Work Phone: Start: 06-26-2023 End: 06-26-[address] Khurram Parish Work Phone: [facility] Work Phone: Start: 06-26-2023 End: 06-26-[address] Khurram Parish Work Phone: [facility] Work Phone: Start: 12-01-2022 End: 12-01-2022 ambulatory [facility] Work Phone: Start: 12-01-2022 End: 12-01-2022 Patient encounter procedure [facility] Start: 11-24-2022 End: 11-24-[address] [facility] Work Phone: Start: 05-26-2022 End: 05-26-2022 ambulatory [facility] Work Phone: Start: 05-26-2022 End: 05-26-2022 Patient encounter procedure [facility] Start: 04-05-2022 End: 04-05-2022 ambulatory [facility] Work Phone: Start: 04-05-2022 End: 04-05-2022 Patient encounter procedure [facility] Start: 12-30-2021 End: 12-30-2021 Patient encounter procedure [facility] Start: 10-14-2021 End: 10-14-2021 Patient encounter procedure [facility] Procedures Date Procedure Procedure Detail Performing Clinician Start: 06-26-2023 Screening mammography Pedro Luis Parish Work Phone: Start: 10-08-2014 Mammography Cara Wellington MD Work Phone: Plan of Treatment Date Care Activity Detail Author Start: 04-02-2027 Screening for malignant neoplasm of colon [facility] Start: 07-01-2025 End: 07-01-2025 Patient encounter procedure 07/01/2025 8:30 AM EDT Office Visit [facility] [address] [place] [id number] Cara Wellington MD [address] [place] [address] [facility] Start: 07-16-2024 End: 10-15-2024 DBT Breast - bilateral screening Bilateral screening mammogram with tomosynthesis Imaging Routine Screening mammogram, encounter for Expected: 07/16/2024, Expires: 10/15/2024 [facility] Comment on above: Expected: 07/16/2024 , Expires: 10/15/2024 Start: 06-18-2024 End: 07-16-2024 THINPREP TIS PAP AND HPV MRNA E6/E7 WITH REFLEX TO HPV 16,18/45 THINPREP TIS PAP AND HPV MRNA E6/E7 WITH REFLEX TO HPV 16,18/45 Pathology and Cytology Routine Encounter for gynecological examination without abnormal finding Expected: 06/18/2024 (Approximate), Expires: 07/16/2024 [facility] Work Phone: Comment on above: Expected: 06/18/2024 (Approximate), Expires: 07/16/2024 Start: 06-18-2024 End: 06-18-2024 Patient encounter procedure 06/18/2024 9:50 AM EDT Office Visit [facility] [address] [place] [id number] Cara Wellington MD [address] [place] [address] [facility] Start: 11-25-2023 Influenza vaccination Influenza Vacc ine (#1) [facility] Start: 10-09-2015 Screening for malignant neoplasm of breast Mammogram [facility] Start: 05-29-1997 Screening for malignant neoplasm of cervix [facility] Start: 05-29-1988 Screening for malignant neoplasm of cervix Pap Smear [facility] Start: 1965 Screening for malignant neoplasm of colon [facility] Payers Date Payer Category Payer Self-pay [id number] 2014 Private Health Insurance [id number] 2014 Unknown [id number] 1965 Unknown [id number] 1967 Unknown [id number] Unknown [id number] Unknown [id number] [id number] Unknown [id number] [id number] Social History Date Type Detail Facility Start: 10-27-2020 End: 06-27-2023 Tobacco smoking status NJIS Unknown if ever smoked [facility] Start: 1965 Sex Assigned At Female [facility] Start: 10-03-2023 [facility] Start: 10-03-2023 Tobacco use and exposure Smokeless tobacco non-user [facility] Start: 10-03-2023 End: 06-18-2024 Alcoholic beverage intake Current drinker of alcohol (finding) [facility] Start: 10-03-2023 End: 06-18-2024 Alcoholic beverage intake [facility] Start: 10-03-2023 End: 06-18-2024 Tobacco use panel [facility] Start: 1965 Sex assigned at Not on file [facility] History of Present illness Narrative 06-18-2024 Cara Wellington MD - 06/18/2024 9:50 AM EDT Note Date & Type Note Facility 06-18-2024 History of Presen t illness Narrative Chief Complaint Patient presents with Annual Exam VC for AI note, 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 She reports no new health concerns. Her blood pressure, cholesterol, and glucose levels are all within normal ranges. Her last mammogram was conducted a year ago at [place]. She underwent a Cologuard test in March, which yielded normal results. She is currently experiencing menopausal symptoms such as hot flashes, night sweats, and insomnia, but notes that these symptoms are improving. She is on a regimen of progesterone, administered once daily in the morning. MEDICATIONS Current: Progesterone Results Laboratory Studies Cologuard test done in March was normal. Last pap: was normal Last mammogram: was normal Colon Cancer Screening: Yes Cologuard 03/2024 History: Past Medical History: Diagnosis Date Encounter for colorectal cancer screening using Cologuard test 03/2024 normal Hypothyroidism (CMS/HCC) Past Surgical History: Procedure Laterality Date TUBAL LIGATION Family History Problem Relation Name Age of Onset Thyroid disease Mother Yaritza Diabetes Father Bong Uterine cancer Maternal Grandmother Danni 36 age 40 Other (Bladder cancer) Paternal Grandmother Deepa 80 Social History Tobacco Use Smoking status: Never Smokeless tobacco: Never Vaping Use Vaping status: Never Used Substance Use Topics Alcohol use: Yes Alcohol/week: 8.0 standard drinks of alcohol Types: 2 Glasses of wine, 6 Cans of beer per week Drug use: Never Allergies: Allergies Allergen Reactions Penicillins Medications: Current Outpatient Medications on File Prior to Visit Medication Sig Dispense Refill ergocalciferol (Vitamin D2) 1.25 MG (52843 UT) capsule Take 1 capsule by mouth 1 (one) time per week levothyroxine (Synthroid, Levoxyl) 50 MCG tablet Loratadine-Pseudoephedrine (CLARITIN-D 24 HOUR PO) [DISCONTINUED] progesterone (Prometrium) 100 MG capsule Take 1 capsule (100 mg) by mouth Daily 30 capsule 11 No current facility-administered medications on file prior to visit. ROS: Physical exam: Visit Vitals BP 142/90 (BP Location: Left arm, Patient Position: Sitting, BP Cuff Size: Small adult) Ht 5' 2 Wt 154 lb BMI 28.17 kg/m OB Status Postmenopausal Smoking Status Never BSA 1.75 m Physical Exam Constitutional: Appearance: Normal appearance. Cardiovascular: Rate and Rhythm: Normal rate and regular rhythm. Heart sounds: Normal heart sounds. Pulmonary: Effort: Pulmonary effort is normal. Breath sounds: Normal breath sounds. Chest: Breasts: Right: Normal. Left: Normal. Abdominal: General: Bowel sounds are normal. Palpations: Abdomen is soft. Genitourinary: General: Normal vulva. Vagina: Normal. Cervix: Normal. Uterus: Normal. Adnexa: Right adnexa normal and left adnexa normal. Musculoskeletal: Cervical back: Neck supple. Skin: General: Skin is warm and dry. Neurological: General: No focal deficit present. Mental Status: She is alert and oriented to person, place, and time. Psychiatric: Mood and Affect: Mood normal. Physical Exam Assessment and Plan: Suri was seen today for annual exam. Diagnoses and all orders for this visit: Encounter for gynecological examination without abnormal finding (Primary) - THINPREP TIS PAP AND HPV MRNA E6/E7 WITH REFLEX TO HPV 16,18/45; Future - THINPREP TIS PAP AND HPV MRNA E6/E7 WITH REFLEX TO HPV 16,18/45 Screening mammogram, encounter for - Bilateral screening mammogram with tomosynthesis; Future Encounter for colorectal cancer screening using Cologuard test Symptomatic menopausal or female climacteric states - progesterone (Prometrium) 100 MG capsule; Take 2 capsules (200 mg) by mouth at bedtime Assessment & Plan 1. Menopausal symptoms. She reports experiencing hot flashes, night sweats, and insomnia, which are getting better but still bothersome. She is currently on progesterone 100 mg taken in the morning. The dosage of progesterone will be increased to 200 mg and she is advised to take it at night to help with insomnia. It may take 6 to 8 weeks before noticing any difference. She will provide an update on her condition in a couple of months. If the increased dosage is effective, she will continue with it. If not, alternative treatment options will be considered. 2. Health maintenance. Her last mammogram was a year ago, and she completed a Cologuard test in March, which was normal. A Pap smear will be conducted during this visit. An order for a screening mammogram has been placed. She is advised to ask the facility to fax the results or send a message to ensure the results are in the system. Discussed good diet, weight bearing exercises, calcium, vitamin d. Follow up One year documented in this encounter [facility] History of Present illness Narrative 11-14-2023 Cara Wellington MD - 11/14/2023 8:05 AM EDT Note Date & Type Note Facility 11-14-2023 History of Presen t illness Narrative p documented in this encounter [facility] Evaluation note Note Date & Type Note Facility Evaluation note No assessment information availa ble [facility] Work Phone: Evaluation note Note Date & Type Note Facility Evaluation note Diagnosis Onset Date Encounter for screening breast examination acute Encounter for routine gyneco logical examination noneactive Low libido noneactive [facility] Work Phone: Evaluation note Note Date & Type Note Facility Evaluation note Diagnosis Symptomatic menopausal or female climacteric states- Primary documented in this encounter [facility] Evaluation note Note Date & Type Note Facility Evaluation note Diagnosis Encounter for gynecological examination without abnormal finding- Primary Screening mammogram, encounter for Encounter for colorectal cancer screening using Cologuard test Symptomatic menopausal or female climacteric states documented in this encounter [facility] Family History No Family History Records Found Relationship Condition Age at Onset Recorded Date/T khushboo grandfather Cardiac disease Unknown Malignant neoplasm Unknown father Cardiac disease Unknown mother Hypertension Unknown Disorder of thyroid Unknown Chief Complaint and Reason for Visit Chief Complaint EORDER Chief Complaint SCREENING Annual ([employer]) Reason for Visit Encounter for screen ing breast examination Encounter for routine gynecological examination Low libido Summary Purpose Advance Directives No Advanced Directives Records FoundNo Advanced Directives Records Found Additional Source Comments Goals (unrecognized section and content) Goals may be documented in a n alternate sectionGoals may be documented in an alternate sectionGoals may be documented in an alternate sectionGoals may be documented in an alternate sectionGoals may be documented in an alternate section Care Teams (unrecognized sec tion and content) Team Status: Active Member Role Status Dates Dr. Khurram Parish MD Family Provider Active Dr. Khurram Parish MD Primary Care Provider Active Team Status: Inactive Member Role Status Dates Dr. Khurram Parish MD Primary Care Provider, Referring P rojorge Active NIRAV Blackwell Attending Provider Active Team Status: Inactive Member Role Status Dates Dr. Khurram Parish MD Primary Care Provider, Attending P rojorge Active Team Status: Inactive Member Role Status Dates Dr. Khurram Parish MD Primary Care Provider Active NIRAV Blackwell Attending Provider, Referr ing Provider Active Team Status: Inactive Member Role Status Dates Dr. Khurram Parish MD Primary Care Provider, Referring P rovider Active NIRAV Krause Attending Provider Active Team Status: Inactive Member Role Status Dates Dr. Khurram Parish MD Primary Care Provide r, Attending Provider, Referring Provider Active [employer] Relationship Specialty Start Date End Date Unallocated, Lita Hawthorne MD [address] [place] [id number] PCP - General Family Medicine 10/03/23 [employer] Relationship Specialty Start Date End Date Unallocated, Lita Provider, [place] [id number] PCP - General Family Medicine 10/03/23 Reason for Visit (unrecogniz ed section and content) Reason Comments Annual Exam VC for AI note, no c haperone INFORMATION SOURCE (unrecogn ized section and content) DATE CREATED AUTHOR 06/19/2024 [facility] EPIC DATE CREATED AUTHOR 'S ORGANIZ ATION 08/03/2024 [facility] FOR RECORDS PERTAINING TO PATIENTS WHO ARE OR HAVE BEEN ENROLLED IN A CHEMICAL DEPENDENCY/SUBSTANCEABUSE PROGRAM, SOME INFORMATION MAY BE OMITTED. This clinical summary was aggregated from multiple sources. Caution should be exercised in using it in the provision of clinical care. This summary normalizes information from multiple sources, and as a consequence, information in this document may materially change the coding, format and clinical context of patient data. In addition, data may be omitted in some cases. CLINICAL DECISIONS SHOULD BE BASED ON THE PRIMARY CLINICAL RECORDS. [employer] provides no warranty or guarantee of the accuracy or completeness of information in this document.
--- NOTE | 2024-11-01 08:21 | MRI_ITS ---
PROCEDURE: SPINE LUMBAR (ROUTINE) 11/01/2024 REASON FOR EXAM: RADICULOPATHY TECHNIQUE: SPINE LUMBAR (ROUTINE) COMPARISON: None. FINDINGS: Vertebrae: The vertebral body heights and signal are preserved. Alignment: Normal alignment. Conus Medullaris: Unremarkable. L1-2: Unremarkable. L2-3: Unremarkable. L3-4: Disc desiccation. Disc bulge. Annular fissure. Mild canal stenosis. Mild bilateral foramina stenosis. L4-5: Disc desiccation. Disc bulge. Facet joint arthropathy. Mild foraminal or canal stenosis. L5-S1: Disc bulge. A superimposed 2 mm central disc protrusion. Facet joint arthropathy. No significant foraminal or canal stenosis. Sacrum: No acute bony abnormalities. MRI/Spine Lumbar (Routine) IMPRESSION: No significant foraminal or canal stenosis. Reading Location: [facility]
== END | disposition home or self-care (01) ==
LOC: MRI 08:06
PROVIDERS: PCP Family Medicine; Referring Provider Physician Assistant; Visit Provider Physician Assistant
DX: M54.16 Radiculopathy, lumbar region (principal); R20.2 Paresthesia of skin
CPT/HCPCS: 72148

== ENCOUNTER → 2024-12-04 | Outpatient (CLI) | payer OTHER, SELFPAY ==
[2024-12-04 10:20] LABS: Hematocrit 43.7 % (37-47); Hemoglobin 15.1 g/dL (12.0-15.0); Immature Granulocytes Count 0.060 X10^3/uL (0.0-0.0); Mean Corp Hgb Conc 34.6 g/dL (32-36); Mean Corpuscular Volume 95.2 fL (81-99); Mean Platelet Vol. 9.4 fl (6.2-12.0); NRBC Flagged by Analyzer 0 % (0-5); Platelet Count 355 K/mm3 (150-450); RBC Distribution Width CV 12.4 % (11.6-14.6); RBC Distribution Width SD 44.2 fl (35.1-43.9); Red Blood Count 4.59 M/mm3 (4.2-5.4); White Blood Count 10.6 K/mm3 (4.4-11.0)
[2024-12-04 12:09] LABS: AST(SGOT) 14 U/L (<=31); Alanine Aminotransfer ALT/SGPT 16 U/L (<=34); Albumin, Serum 4.2 g/dL (3.5-5.0); Alkaline Phosphatase 77 U/L (35-104); Anion Gap 12 (5-15); BUN 20 mg/dL (4-19); BUN/Creat Ratio 26.9 RATIO (10-20); Calcium,Total 9.4 mg/dL (7.6-11.0); Carbon Dioxide 26.2 mmol/L (21.0-32.0); Chloride 100 mmol/L (98-108); Cholesterol 280 mg/dL (<=200); Globulin 2.8 g/dL (2.2-4.2); Glucose 89 mg/dL (70-99); Low Density Lipoprotein Calc. 144 mg/dL; Potassium 3.8 mmol/L (3.3-5.1); Triglycerides 88 mg/dL; Very Low Density Lipoprotein 18 mg/dL (5-40); Vitamin D,25 Hydroxy 52.5 ng/mL (30-100); cholesterol:hdl ratio screen 2.37
== END | disposition home or self-care (01) ==
LOC: MTLAB 07:59
PROVIDERS: PCP Family Medicine; Referring Provider Family Medicine; Visit Provider Family Medicine
DX: Z00.00 Encounter for general adult medical examination without abnormal findings (principal); E03.9 Hypothyroidism, unspecified; Z13.220 Encounter for screening for lipoid disorders
CPT/HCPCS: 36415; 80053; 80061; 82306; 84443; 85025